=== PATIENT | male | born 1935 | race Caucasian/White ===

== ENCOUNTER 2018-11-06 13:02 | Inpatient (IN) | payer BC, MEDICARE ==
[2018-11-06] MEDS ORDERED: SODIUM CHLORIDE 0.9% 500 ML 500 ML IV STA (13:18)
--- NOTE | 2018-11-06 13:21 | ED ---
General Adult HPI - General Chief complaint: Chest Pain Stated complaint: Chest Pain Time Seen by Provider: 11/06/18 13:05 Source: patient, RN notes reviewed Mode of arrival: wheelchair Limitations: no limitations - History of Present Illness Initial comments: This is an 83-year-old male who presents emergency department with past medical history significant for high blood pressure. Patient comes in today complaining that he had some sharp chest pain this morning and he had occur multiple times. Patient states it lasts for about 1 second and goes away and then it doesn't come back for a while and then it has occurred multiple times since then per patient denies any radiation of the pain. Patient denies any shortness of breath or difficulty breathing. Patient denies any nausea patient patient denies any diaphoretic episodes. Patient states currently he is not having any pain whatsoever. He states recently had a little upper respiratory infection with a little bit of a cough but has no sputum production. Patient denies any fever chills. Patient denies any lightheadedness or dizziness per patient denies any headache patient denies numbness weakness. Patient denies any abdominal pain - Related Data Home Medications Medication Instructions Recorded Confirmed Hydrochlorothiazide [Hydrodiuril] 25 mg PO DAILY 02/23/14 11/06/18 Aspirin EC [Ecotrin Low Dose] 81 mg PO DAILY 11/06/18 11/06/18 Allergies Allergy/AdvReac Type Severity Reaction Status Date / Time No Known Allergies Allergy Verified 11/06/18 13:39 Review of Systems ROS Statement: Those systems with pertinent positive or pertinent negative responses have been documented in the HPI. ROS Other: All systems not noted in ROS Statement are negative. Past Medical History Past Medical History: Hypertension History of Any Multi-Drug Resistant Organisms: None Reported Past Surgical History: Orthopedic Surgery Past Psychological History: No Psychological Hx Reported Smoking Status: Former smoker Past Alcohol Use History: Occasional Past Drug Use History: Unable to Obtain General Exam - General Exam Comments Initial Comments: GENERAL: Patient is well-developed and well-nourished. Patient is nontoxic and well- hydrated and is in no acute distress. ENT: Neck is soft and supple. No significant lymphadenopathy is noted. Oropharynx is clear. Moist mucous membranes. Neck has full range of motion without eliciting any pain. EYES: The sclera were anicteric and conjunctiva were pink and moist. Extraocular movements were intact and pupils were equal round and reactive to light. Eyelids were unremarkable. PULMONARY: Crackles left base CARDIOVASCULAR: There is a regular rate and rhythm without any murmurs gallops or rubs. ABDOMEN: Soft and nontender with normal bowel sounds. SKIN: Skin is clear with no lesions or rashes and otherwise unremarkable. NEUROLOGIC: Patient is alert and oriented x3. Cranial nerves II through XII are grossly intact. Motor and sensory are also intact. Normal speech, volume and content. Symmetrical smile. MUSCULOSKELETAL: Normal extremities with adequate strength and full range of motion. No lower extremity swelling or edema. No calf tenderness. LYMPHATICS: No significant lymphadenopathy is noted PSYCHIATRIC: Normal psychiatric evaluation. Limitations: no limitations Course Vital Signs 11/06/18 11/06/18 13:05 13:25 Temperature 98.6 F Pulse Rate 98 92 Respiratory 16 20 Rate Blood Pressure 147/77 119/87 O2 Sat by Pulse 95 95 Oximetry Medical Decision Making - Medical Decision Making EKG shows sinus rhythm with frequent PVCs at 97 bpm ND interval is on a 42 QRS is 110 QT interval 360 QTC is 457. Patient's EKG shows no ST segment elevation or depression. Patient was not having symptoms when he had the PVCs. Patient's chest x-ray shows infiltrate in the left base. I gave the patient 2 g of Rocephin. Spoke with Dr. Galvin he agreed to admit the patient admitted the patient and wrote admitting orders. I continued antibiotics on the floor - Lab Data Result diagrams: 11/06/18 13:25 11/06/18 13:25 Lab Results 11/06/18 11/06/18 11/06/18 Range/Units 13:25 13:25 13:25 WBC 21.2 H (3.8-10.6) k/uL RBC 5.00 (4.30-5.90) m/uL Hgb 14.6 (13.0-17.5) gm/dL Hct 44.5 (39.0-53.0) % MCV 89.1 (80.0-100.0) fL MCH 29.3 (25.0-35.0) pg MCHC 32.9 (31.0-37.0) g/dL RDW 13.5 (11.5-15.5) % Plt Count 415 (150-450) k/uL Neutrophils % 89 % Lymphocytes % 6 % Monocytes % 4 % Eosinophils % 1 % Basophils % 0 % Neutrophils # 18.8 H (1.3-7.7) k/uL Lymphocytes # 1.3 (1.0-4.8) k/uL Monocytes # 0.8 (0-1.0) k/uL Eosinophils # 0.1 (0-0.7) k/uL Basophils # 0.1 (0-0.2) k/uL PT 10.7 (9.0-12.0) sec INR 1.0 (<1.2) APTT 23.9 (22.0-30.0) sec Sodium 136 L (137-145) mmol/L Potassium 4.3 (3.5-5.1) mmol/L Chloride 99 (98-107) mmol/L Carbon Dioxide 30 (22-30) mmol/L Anion Gap 7 mmol/L BUN 18 (9-20) mg/dL Creatinine 0.74 (0.66-1.25) mg/dL Est GFR (CKD-EPI)AfAm >90 (>60 ml/min/1.73 sqM) Est GFR (CKD-EPI)NonAf 85 (>60 ml/min/1.73 sqM) Glucose 108 H (74-99) mg/dL Calcium 9.4 (8.4-10.2) mg/dL Magnesium 1.7 (1.6-2.3) mg/dL Total Bilirubin 1.3 (0.2-1.3) mg/dL AST 21 (17-59) U/L ALT 24 (21-72) U/L Alkaline Phosphatase 60 (38-126) U/L Troponin I (0.000-0.034) ng/mL Total Protein 6.8 (6.3-8.2) g/dL Albumin 3.9 (3.5-5.0) g/dL 11/06/18 Range/Units 13:25 WBC (3.8-10.6) k/uL RBC (4.30-5.90) m/uL Hgb (13.0-17.5) gm/dL Hct (39.0-53.0) % MCV (80.0-100.0) fL MCH (25.0-35.0) pg MCHC (31.0-37.0) g/dL RDW (11.5-15.5) % Plt Count (150-450) k/uL Neutrophils % % Lymphocytes % % Monocytes % % Eosinophils % % Basophils % % Neutrophils # (1.3-7.7) k/uL Lymphocytes # (1.0-4.8) k/uL Monocytes # (0-1.0) k/uL Eosinophils # (0-0.7) k/uL Basophils # (0-0.2) k/uL PT (9.0-12.0) sec INR (<1.2) APTT (22.0-30.0) sec Sodium (137-145) mmol/L Potassium (3.5-5.1) mmol/L Chloride (98-107) mmol/L Carbon Dioxide (22-30) mmol/L Anion Gap mmol/L BUN (9-20) mg/dL Creatinine (0.66-1.25) mg/dL Est GFR (CKD-EPI)AfAm (>60 ml/min/1.73 sqM) Est GFR (CKD-EPI)NonAf (>60 ml/min/1.73 sqM) Glucose (74-99) mg/dL Calcium (8.4-10.2) mg/dL Magnesium (1.6-2.3) mg/dL Total Bilirubin (0.2-1.3) mg/dL AST (17-59) U/L ALT (21-72) U/L Alkaline Phosphatase (38-126) U/L Troponin I <0.012 (0.000-0.034) ng/mL Total Protein (6.3-8.2) g/dL Albumin (3.5-5.0) g/dL Disposition Clinical Impression: Pneumonia Disposition: ADMITTED IP TO THIS HOSP Referrals: Robinson Altman MD [Primary Care Provider] - 1-2 days Time of Disposition: 14:50
--- NOTE | 2018-11-06 13:59 | XR ---
EXAMINATION TYPE: XR chest 2V DATE OF EXAM: 11/06/2018 COMPARISON: None HISTORY: Shortness of breath TECHNIQUE: Frontal and lateral views of the chest are obtained. FINDINGS: Scattered senescent parenchymal changes noted. There is left basilar atelectasis or infiltrate noted. Heart size is stable. Mediastinal structures are stable and grossly unremarkable. No evidence for hilar prominence. Degenerative changes dorsal spine. IMPRESSION: 1. There is left basilar atelectasis or infiltrate noted.
[2018-11-06 14:04] LABS: Basophils # (A) 0.1 k/uL (0-0.2); Basophils % (A) 0 %; Eosinophils # (A) 0.1 k/uL (0-0.7); Eosinophils % (A) 1 %; HCT 44.5 % (39.0-53.0); HGB 14.6 gm/dL (13.0-17.5); Lymphocytes # (A) 1.3 k/uL (1.0-4.8); Lymphocytes % (A) 6 %; MCH 29.3 pg (25.0-35.0); MCHC 32.9 g/dL (31.0-37.0); MCV 89.1 fL (80.0-100.0); Mean Platelet Volume 7.1; Monocytes # (A) 0.8 k/uL (0-1.0); Monocytes % (A) 4 %; Neutrophils # (A) 18.8 k/uL (1.3-7.7); Neutrophils % (A) 89 %; Platelet Count 415 k/uL (150-450); RDW 13.5 % (11.5-15.5); WBC 21.2 k/uL (3.8-10.6)
[2018-11-06 14:17] LABS: Partial Thromboplastin Time 23.9 sec (22.0-30.0); Prothrombin Time 10.7 sec (9.0-12.0)
[2018-11-06 14:24] LABS: ALT 24 U/L (21-72); AST 21 U/L (17-59); Albumin 3.9 g/dL (3.5-5.0); Alkaline Phosphatase 60 U/L (38-126); Anion Gap 7 mmol/L; Blood Urea Nitrogen 18 mg/dL (9-20); Calcium 9.4 mg/dL (8.4-10.2); Carbon Dioxide 30 mmol/L (22-30); Chloride 99 mmol/L (98-107); Glucose 108 mg/dL (74-99); Magnesium 1.7 mg/dL (1.6-2.3); Sodium 136 mmol/L (137-145); Total Bilirubin 1.3 mg/dL (0.2-1.3); Total Protein 6.8 g/dL (6.3-8.2)
[2018-11-06 14:28] LABS: Potassium 4.3 mmol/L (3.5-5.1)
[2018-11-06] MEDS ORDERED: AZITHROMYCIN 500 MG in SODIUM CHLORIDE 0.9% 250 ML IVPB STA (14:51)
[2018-11-06] MEDS ORDERED: PNEUMONIA PROTOCOL UTILIZED 1 EACH MISC PO PRN (14:51)
[2018-11-06] MEDS ORDERED: ACETAMINOPHEN TAB 325 MG TAB PO PRN (14:59)
[2018-11-06] MEDS ORDERED: IPRATROPIUM-ALBUTEROL 3 ML NEB INHALATION PRN (14:59)
--- NOTE | 2018-11-06 15:38 | P.HPIM ---
History of Present Illness H&P Date: 11/06/18 This is a 83-year-old male patient of Dr. Altman. Patient presented with complaints of sharp chest pain that has occurs with coughing. Per patient's family member at bedside patient has been increasingly weak and tired over the past few weeks. Patient has reportedly had a cough for multiple weeks. Patient does have a past medical history of hypertension and ex-smoker. Chest x-ray completed showing there is left basal atelectasis or infiltrate noted. EKG completed showing sinus rhythm with frequent premature ventricular complexes, left anterior fascicle block. Initial troponin negative. WBC 21.2. Patient started on azithromycin and Rocephin. DuoNeb breathing treatments. Repeat to y ou a chest x-ray ordered for a.m. sputum and blood culture ordered. At this time patient denies chest pain and SOB. Patient denies nausea vomiting or diarrhea. Patient denies any urinary burning or frequency Review of Systems please refer to HPI otherwise unremarkable Past Medical History Past Medical History: Hypertension History of Any Multi-Drug Resistant Organisms: None Reported Past Surgical History: Orthopedic Surgery Past Psychological History: No Psychological Hx Reported Smoking Status: Former smoker Past Alcohol Use History: Occasional Past Drug Use History: Unable to Obtain Medications and Allergies Home Medications Medication Instructions Recorded Confirmed Type Hydrochlorothiazide [Hydrodiuril] 25 mg PO DAILY 02/23/14 11/06/18 History Aspirin EC [Ecotrin Low Dose] 81 mg PO DAILY 11/06/18 11/06/18 History Allergies Allergy/AdvReac Type Severity Reaction Status Date / Time No Known Allergies Allergy Verified 11/06/18 13:39 Physical Exam Vitals: Vital Signs Temp Pulse Resp BP Pulse Ox 11/06/18 13:25 92 20 119/87 95 11/06/18 13:05 98.6 F 98 16 147/77 95 Intake and Output 11/06/18 11/06/18 11/06/18 06:59 14:59 22:59 Other: Weight 97.976 kg Head normocephalic Neck supple Lungs diminished bilaterally Heart regular rate and rhythm S1-S2, no rub or gallop Abdomen is soft nontender nondistended positive bowel sounds no hepatosplenomegaly Extremities no edema Neuro alert and orientated to 3 Results CBC & Chem 7: 11/06/18 13:25 11/06/18 13:25 Labs: Abnormal Lab Results - Last 24 Hours (Table) 11/06/18 11/06/18 Range/Units 13:25 13:25 WBC 21.2 H (3.8-10.6) k/uL Neutrophils # 18.8 H (1.3-7.7) k/uL Sodium 136 L (137-145) mmol/L Glucose 108 H (74-99) mg/dL Assessment and Plan Assessment: 1. Chest pain . EKG completed showing sinus rhythm with frequent premature ventricular complexes. Left anterior fascicular block. Troponin negative 1. Repeat 2 view chest x-ray ordered. Cardiology services consulted. Serial troponins ordered 2. pneumonia. Chest x-ray completed showing left basal atelectasis or infiltrate noted. Sputum culture ordered. Patient currently on azithromycin and Rocephin. Pulmonary service is consulted. 3. History of essential hypertension. Home meds resumed DVT prophylaxis Lovenox. GI prophylaxis Protonix Time with Patient: Greater than 30 (Greater than 60% of the total time spent in counseling and coordination of care. I performed an examination of the patient and discussed their management with the Nurse Practitioner. I have reviewed the Nurse Practitioner's notes and agree with the documented findings and plan of care)
[2018-11-06] MEDS: IPRATROPIUM-ALBUTEROL 3 ML NEB INHALATION SCH ×2 (16:56→19:35)
[2018-11-06 21:10] LABS: Creatine Kinase MB 0.6 ng/mL (0.0-2.4)
[2018-11-07] MEDS: HYDROCHLOROTHIAZIDE 25 MG TAB PO SCH (08:04)
[2018-11-07] MEDS: ASPIRIN 81 MG PO SCH (08:04)
[2018-11-07] MEDS: PANTOPRAZOLE 40 MG TABLET PO SCH (08:04)
[2018-11-07] MEDS: ENOXAPARIN 40 MG/0.4 ML SYRINGE SQ SCH (08:04)
[2018-11-07 08:22] LABS: Basophils # (A) 0.1 k/uL (0-0.2); Basophils % (A) 0 %; Eosinophils # (A) 0.1 k/uL (0-0.7); Eosinophils % (A) 0 %; HCT 44.6 % (39.0-53.0); HGB 14.4 gm/dL (13.0-17.5); Lymphocytes # (A) 1.3 k/uL (1.0-4.8); Lymphocytes % (A) 8 %; MCH 29.8 pg (25.0-35.0); MCHC 32.4 g/dL (31.0-37.0); MCV 91.9 fL (80.0-100.0); Mean Platelet Volume 6.8; Monocytes # (A) 0.8 k/uL (0-1.0); Monocytes % (A) 5 %; Neutrophils % (A) 86 %; Platelet Count 406 k/uL (150-450); RBC 4.86 m/uL (4.30-5.90); WBC 16.3 k/uL (3.8-10.6)
[2018-11-07 08:32] LABS: ALT 34 U/L (21-72); AST 17 U/L (17-59); Alkaline Phosphatase 67 U/L (38-126); Anion Gap 8 mmol/L; Blood Urea Nitrogen 15 mg/dL (9-20); Calcium 9.6 mg/dL (8.4-10.2); Carbon Dioxide 31 mmol/L (22-30); Chloride 98 mmol/L (98-107); Glucose 110 mg/dL (74-99); Potassium 4.8 mmol/L (3.5-5.1); Sodium 137 mmol/L (137-145); Total Bilirubin 2.5 mg/dL (0.2-1.3); Total Protein 6.9 g/dL (6.3-8.2)
--- NOTE | 2018-11-07 08:50 | XR ---
EXAMINATION TYPE: XR chest 2V DATE OF EXAM: 11/07/2018 COMPARISON: 11/06/2018 TECHNIQUE: PA and lateral views submitted. HISTORY: Follow-up pneumonia FINDINGS: Bilateral consolidation and small effusion. Biapical pleural. Chronic clavicular deformity. No pneumo thorax. Biapical pleural thickening. Heart size stable. Degenerative changes of the spine noted. Mild compression deformities of indeterminate age. Arthropathy of the shoulders. IMPRESSION: 1. Bilateral infiltrate and pleural effusion correlate for pneumonia otherwise consider CHF. Findings are stable.
[2018-11-07] MEDS: IPRATROPIUM-ALBUTEROL 3 ML NEB INHALATION SCH ×4 (09:02→20:29)
[2018-11-07 09:06] LABS: Creatine Kinase MB 0.7 ng/mL (0.0-2.4)
--- NOTE | 2018-11-07 09:25 | P.CRDCN ---
History of Present Illness History of present illness: This is a pleasant 83-year-old male past medical history significant for hypertension and former nicotine dependence. He denies history of coronary artery disease and does not follow with a melter assistant for any reason. We have been asked to see him in consultation secondary to chest discomfort. He presented to the hospital yesterday with symptoms of sharp pleuritic chest dis comfort in the midsternal region that are worse when he coughs or takes in a deep breath. He states he has been coughing for the last few days and has had associated shortness of breath. The pain initially started at the base of his left ribs and his radiated to the midsternal region. He denies associated dizziness, nausea, vomiting, diaphoresis or palpitations. He is currently being treated with IV antibiotics for pneumonia. EKG reveals sinus mechanism with frequent PVCs and left anterior fascicular block heart rate is 97. Chest x-ray obtained on admission reveals an infiltrate in the left lobe. Repeat this morning reveals bilateral infiltrate and pleural effusions. Laboratory data reviewed, WBC on admission 21.2, repeat this morning 16.3, hemoglobin 14.4, platelets were 06, sodium 137, potassium 4.8, creatinine 0.79, magnesium 1.7, cardiac enzymes negative 1. Current cardiac medications include hydrochlorothiazide 25 mg daily and aspirin 81 mg daily. At the time of my exam: CONSTITUTIONAL: Denies fever. Denies chills. EYES: Denies blurred vision. Denies vision changes. Denies eye pain. EARS, NOSE, MOUTH & THROAT: Denies headache. Denies sore throat. Denies ear pain. CARDIOVASCULAR: Complains of pleuritic chest pain with cough and deep inspiration. Complains of shortness of breath. Denies orthopnea. Denies PND. Denies palpitations. RESPIRATORY: Complains of cough. GASTROINTESTINAL: Denies abdominal pain. Denies diarrhea. Denies constipation. Denies nausea. Denies vomiting. MUSCULOSKELETAL: Denies myalgias. INTEGUMENTARY: Denies pruitis. Denies rash. NEUROLOGIC: Denies numbness. Denies tingling. Denies weakness. PSYCHIATRIC: Denies anxiety. Denies depression. ENDOCRINE: Denies fatigue. Denies weight change. Denies polydipsia. Denies polyurina. GENITOURINARY: Denies burning, hematuria or urgency with micturation. HEMATOLOGIC: Denies history of anemia. Denies bleeding. Blood pressure 130/73 heart rate 100 afebrile maintaining oxygen saturation on nasal cannula GENERAL: This is a 83-year-old male in no apparent distress at the time of my examination. HEENT: Head is atraumatic, normocephalic. Pupils are equal, round. Sclerae anicteric. Conjunctivae are clear. Mucous membranes of the mouth are moist. Neck is supple. There is no jugular venous distention. No carotid bruit is heard. LUNGS: Scattered rhonchi noted, no wheezes or rales. No chest wall tenderness is noted on palpation or with deep breathing. HEART: Regular rate and rhythm without murmurs, rubs or gallops. S1 and S2 heard. ABDOMEN: Soft, nontender. Bowel sounds are heard. No organomegaly noted. EXTREMITIES: No evidence of peripheral edema and no calf tenderness noted. VASCULAR: Radial and dorsalis pedis pulses palpated, no evidence of clubbing. NEUROLOGIC: Patient is awake, alert and oriented x3. ASSESSMENT Pneumonia Pleuritic chest pain Hypertension PLAN Patient is very atypical for angina, is pleuritic in nature worse with deep inspiration or cough. No EKG evidence of ischemia. Obtain second troponin to rule out an acute events. Check proBNP. Obtain 2D echocardiogram and doppler study to assess cardiac structure and function. Ongoing medical management of pneumonia. Thank you kindly for this consultation. Nurse Practitioner note has been reviewed, I agree with a documented findings and plan of care. Patient was seen and examined. Past Medical History Past Medical History: Hypertension History of Any Multi-Drug Resistant Organisms: None Reported Past Surgical History: Orthopedic Surgery Past Psychological History: No Psychological Hx Reported Smoking Status: Former smoker Past Alcohol Use History: Occasional Past Drug Use History: Unable to Obtain Medications and Allergies Home Medications Medication Instructions Recorded Confirmed Type Hydrochlorothiazide [Hydrodiuril] 25 mg PO DAILY 02/23/14 11/06/18 History Aspirin EC [Ecotrin Low Dose] 81 mg PO DAILY 11/06/18 11/06/18 History Allergies Allergy/AdvReac Type Severity Reaction Status Date / Time No Known Allergies Allergy Verified 11/06/18 13:39 Physical Exam Vitals: Vital Signs Temp Pulse Pulse Resp BP BP Pulse Ox 11/07/18 09:02 96 11/07/18 05:00 98.8 F 92 16 130/73 90 L 11/06/18 21:02 20 11/06/18 20:33 98.5 F 90 20 138/61 95 11/06/18 19:42 99 11/06/18 19:33 99 11/06/18 17:56 98.1 F 99 20 151/95 90 L 11/06/18 17:06 100 11/06/18 17:00 99.0 F 84 20 132/67 95 11/06/18 16:58 96 11/06/18 16:00 87 20 120/70 95 11/06/18 15:00 88 16 142/80 94 L 11/06/18 14:00 90 18 139/85 95 11/06/18 13:25 92 20 119/87 95 11/06/18 13:05 98.6 F 98 16 147/77 95 Intake and Output 11/06/18 11/07/18 11/07/18 22:59 06:59 14:59 Intake Total 490 480 Balance 490 480 Intake: Intake, IV Titration 250 Amount Azithromycin 500 mg In 250 Sodium Chloride 0.9% 250 ml @ 250 mls/hr IVPB ONCE STA Rx#:[id number] Oral 240 480 Other: Voiding Method Urinal # Voids 1 3 Results 11/07/18 07:32 11/07/18 07:32 Cardiac Enzymes 11/06/18 11/06/18 11/06/18 Range/Units 13:25 13:25 13:25 AST 21 (17-59) U/L CK-MB (CK-2) 1.0 (0.0-2.4) ng/mL Troponin I <0.012 (0.000-0.034) ng/mL 11/06/18 11/07/18 Range/Units 20:15 07:32 AST 17 (17-59) U/L CK-MB (CK-2) 0.6 (0.0-2.4) ng/mL Troponin I (0.000-0.034) ng/mL Coagulation 11/06/18 Range/Units 13:25 PT 10.7 (9.0-12.0) sec APTT 23.9 (22.0-30.0) sec CBC 11/06/18 11/07/18 Range/Units 13:25 07:32 WBC 21.2 H 16.3 H (3.8-10.6) k/uL RBC 5.00 4.86 (4.30-5.90) m/uL Hgb 14.6 14.4 (13.0-17.5) gm/dL Hct 44.5 44.6 (39.0-53.0) % Plt Count 415 406 (150-450) k/uL Comprehensive Metabolic Panel 11/06/18 11/07/18 Range/Units 13:25 07:32 Sodium 136 L 137 (137-145) mmol/L Potassium 4.3 4.8 (3.5-5.1) mmol/L Chloride 99 98 (98-107) mmol/L Carbon Dioxide 30 31 H (22-30) mmol/L BUN 18 15 (9-20) mg/dL Creatinine 0.74 0.79 (0.66-1.25) mg/dL Glucose 108 H 110 H (74-99) mg/dL Calcium 9.4 9.6 (8.4-10.2) mg/dL AST 21 17 (17-59) U/L ALT 24 34 (21-72) U/L Alkaline Phosphatase 60 67 (38-126) U/L Total Protein 6.8 6.9 (6.3-8.2) g/dL Albumin 3.9 4.0 (3.5-5.0) g/dL Current Medications Generic Name Dose Route Start Last Admin Trade Name Freq PRN Reason Stop Dose Admin Acetaminophen 650 mg 11/06/18 14:59 11/06/18 20:12 Tylenol Tab PO 650 mg Q6HR PRN Administration Fever and/ or Pain Albuterol/Ipratropium 3 ml 11/06/18 16:00 11/07/18 09:02 Duoneb 0.5 Mg-3 Mg/3 Ml Soln INHALATION 3 ml RT-QID SOWMYA Administration Albuterol/Ipratropium 3 ml 11/06/18 14:59 Duoneb 0.5 Mg-3 Mg/3 Ml Soln INHALATION RT-Q2H PRN Shortness Of Breath Or Wheezing Aspirin 81 mg 11/07/18 09:00 11/07/18 08:04 Aspirin PO 81 mg DAILY SOWMYA Administration Azithromycin 500 mg 11/07/18 16:00 Zithromax PO Q24H [facility] Enoxaparin Sodium 40 mg 11/07/18 09:00 11/07/18 08:04 Lovenox SQ 40 mg DAILY SOWMYA Administration Hydrochlorothiazide 25 mg 11/07/18 09:00 11/07/18 08:04 Hydrodiuril PO 25 mg DAILY SOWMYA Administration Ceftriaxone Sodium 1 gm/ 50 mls @ 100 mls/hr 11/07/18 16:00 Sodium Chloride IVPB 11/10/18 16:01 Q24H SOWMYA Miscellaneous Information 1 each 11/06/18 14:51 Pneumonia Protocol Utilized PO ONCE PRN Per Protocol Pantoprazole Sodium 40 mg 11/07/18 07:30 11/07/18 08:04 Protonix PO 40 mg [id number] SOWMYA Administration Intake and Output 11/06/18 11/07/18 11/07/18 22:59 06:59 14:59 Intake Total 490 480 Balance 490 480 Intake: Intake, IV Titration 250 Amount Azithromycin 500 mg In 250 Sodium Chloride 0.9% 250 ml @ 250 mls/hr IVPB ONCE STA Rx#:[id number] Oral 240 480 Other: Voiding Method Urinal # Voids 1 3 11/07/18 07:32 11/07/18 07:32
--- NOTE | 2018-11-07 09:53 | P.PN ---
Subjective Progress Note Date: 11/07/18 This is a 83-year-old male patient of Dr. Altman. Patient presented with complaints of sharp chest pain that has occurs with coughing. Per patient's family member at bedside patient has been increasingly weak and tired over the past few weeks. Patient has reportedly had a cough for multiple weeks. Patient does have a past medical history of hypertension and ex-smoker. Chest x-ray completed showing there is left basal atelectasis or infiltrate noted. EKG completed showing sinus rhythm with frequent premature ventricular complexes, left anterior fascicle block. Initial troponin negative. WBC 21.2. Patient started on azithromycin and Rocephin. DuoNeb breathing treatments. Repeat to you a chest x-ray ordered for a.m. sputum and blood culture ordered. At this time patient denies chest pain and SOB. Patient denies nausea vomiting or diarrhea. Patient denies any urinary burning or frequency On 11/07/2018 patient is alert and oriented 3 resting in bed. Discussed with nursing staff that cardiac monitoring was ordered for this patient yesterday and patient is not currently on that. Nursing verbalized understanding we'll place patient on cardiac monitoring. Patient is still complaining of occasional chest pain while coughing. Nonproductive cough. At this time patient denies any nausea vomiting or diarrhea. Patient denies any urinary burning or frequency. Cardiology and pulmonary services have been consulted. Objective - Vital Signs Vital signs: Vital Signs Temp 98.8 F 11/07/18 05:00 Pulse 100 11/07/18 09:12 Resp 16 11/07/18 05:00 BP 130/73 11/07/18 05:00 Pulse Ox 90 L 11/07/18 05:00 Intake & Output 11/06/18 11/07/18 11/07/18 18:59 06:59 18:59 Intake Total 970 Balance 970 Weight 97.976 kg Intake: Intake, IV Titration 250 Amount Azithromycin 500 mg In 250 Sodium Chloride 0.9% 250 ml @ 250 mls/hr IVPB ONCE STA Rx#:[id number] Oral 720 Other: Voiding Method Urinal # Voids 3 - Exam Head normocephalic Neck supple Lungs diminished bilaterally Heart regular rate and rhythm S1-S2, no rub or gallop Abdomen is soft nontender nondistended positive bowel sounds no hepatosplenomegaly Extremities no edema Neuro alert and orientated to 3 - Labs CBC & Chem 7: 11/07/18 07:32 11/07/18 07:32 Labs: Abnormal Lab Results - Last 24 Hours (Table) 11/06/18 11/06/18 11/06/18 Range/Units 13:25 13:25 13:25 WBC 21.2 H (3.8-10.6) k/uL Neutrophils # 18.8 H (1.3-7.7) k/uL Sodium 136 L (137-145) mmol/L Carbon Dioxide (22-30) mmol/L Glucose 108 H (74-99) mg/dL Total Bilirubin (0.2-1.3) mg/dL Total Creatine Kinase 35 L (55-170) U/L 11/06/18 11/07/18 11/07/18 Range/Units 20:15 07:32 07:32 WBC 16.3 H (3.8-10.6) k/uL Neutrophils # 14.0 H (1.3-7.7) k/uL Sodium (137-145) mmol/L Carbon Dioxide (22-30) mmol/L Glucose (74-99) mg/dL Total Bilirubin (0.2-1.3) mg/dL Total Creatine Kinase 28 L 34 L (55-170) U/L 11/07/18 Range/Units 07:32 WBC (3.8-10.6) k/uL Neutrophils # (1.3-7.7) k/uL Sodium (137-145) mmol/L Carbon Dioxide 31 H (22-30) mmol/L Glucose 110 H (74-99) mg/dL Total Bilirubin 2.5 H (0.2-1.3) mg/dL Total Creatine Kinase (55-170) U/L Assessment and Plan Assessment: 1. Chest pain . EKG completed showing sinus rhythm with frequent premature ventricular complexes. Left anterior fascicular block. Troponin negative 1. Cardiac monitoring ordered for patient. Nursing verbalized understanding. Per cardiology chest pain very typical for angina likely pleuritic in nature. 2-D e cho and BNP has been ordered 2. pneumonia. Chest x-ray completed showing left basal atelectasis or infiltrate noted. Sputum culture ordered. Patient currently on azithromycin and Rocephin. Pulmonary service is consulted. White Blood cell trending down to 16.3. Repeat chest x-ray showing bilateral infiltrate and pleural effusion correlate for pneumonia otherwise consider CHF findings are stable 3. History of essential hypertension. Home meds resumed DVT prophylaxis Lovenox. GI prophylaxis Protonix I performed an examination of the patient and discussed their management with the Nurse Practitioner. I have reviewed the Nurse Practitioner's notes and agree with the documented findings and plan of care
--- NOTE | 2018-11-07 12:13 | P.CNPUL ---
History of Present Illness Consult date: 11/07/18 Requesting physician: Charlie Galvin Reason for consult: dyspnea, chest pain Chief complaint: Sharp midsternal/left sided chest pain History of present illness: This is a very pleasant 83-year-old gentleman who follows with Dr. Altman as his primary care physician. He has a history of hypertension. He is a former smoker. On no inhalers or oxygen in the outpatient setting. He presented here to the emergency room yesterday with complaints of midsternal/left sharp stabbing intermittent chest pain. Worsens with coughing and deep breathing. Pale yellow productive sputum. No hemoptysis. Initial white count 21.2. Troponins negative. ProBNP 313. Chest x-ray shows bilateral infiltrates and pleural effusion. He's been initiated on ceftriaxone and azithromycin along with bronchodilators. Echocardiogram is pending. EKG revealed sinus rhythm and occasional PVCs. He is seen today in consultation on the regular medical floor. He is awake and alert in no acute distress. Still with occasional sharp right- sided chest discomfort. Maintaining O2 saturations in the 90s on 2 L/m per jim al cannula. He is afebrile. Hemodynamically stable. White count 16.3. Hemoglobin 14.4. Creatinine 0.79. Review of Systems REVIEW OF SYSTEMS: CONSTITUTIONAL: Denies any recent significant weight loss or weight gain. EYES: Denies change in vision. EARS, NOSE, MOUTH, THROAT: Denies headaches, denies sore throat. CARDIOVASCULAR: Sharp right-sided chest pain but no palpitations or syncopal episodes. RESPIRATORY: Positive for shortness of breath, cough, congestion no hemoptysis. GASTROINTESTINAL: Denies change in appetite, denies abdominal pain GENITOURINARY: Denies hematuria, denies infections. MUSKULOSKELETAL: Denies pain, denies swelling. INTEGUMENTARY: Denies rash, denies eczema. NEUROLOGICAL: Denies recent memory loss, no recent seizure activity. PSYCHIATRIC: Denies anxiety, denies depression. HEMATOLOGIC/LYMPHATIC: Denies anemia, denies enlarged lymph nodes. Past Medical History Past Medical History: Hypertension History of Any Multi-Drug Resistant Organisms: None Reported Past Surgical History: Orthopedic Surgery Past Psychological History: No Psychological Hx Reported Smoking Status: Former smoker Past Alcohol Use History: Occasional Past Drug Use History: Unable to Obtain Medications and Allergies Home Medications Medication Instructions Recorded Confirmed Type Hydrochlorothiazide [Hydrodiuril] 25 mg PO DAILY 02/23/14 11/06/18 History Aspirin EC [Ecotrin Low Dose] 81 mg PO DAILY 11/06/18 11/06/18 History Allergies Allergy/AdvReac Type Severity Reaction Status Date / Time No Known Allergies Allergy Verified 11/06/18 13:39 Physical Exam Vitals: Vital Signs Temp Pulse Pulse Resp BP BP Pulse Ox 11/07/18 09:12 100 11/07/18 09:02 96 11/07/18 05:00 98.8 F 92 16 130/73 90 L 11/06/18 21:02 20 11/06/18 20:33 98.5 F 90 20 138/61 95 11/06/18 19:42 99 11/06/18 19:33 99 11/06/18 17:56 98.1 F 99 20 151/95 90 L 11/06/18 17:06 100 11/06/18 17:00 99.0 F 84 20 132/67 95 11/06/18 16:58 96 11/06/18 16:00 87 20 120/70 95 11/06/18 15:00 88 16 142/80 94 L 11/06/18 14:00 90 18 139/85 95 11/06/18 13:25 92 20 119/87 95 11/06/18 13:05 98.6 F 98 16 147/77 95 Intake and Output 11/06/18 11/07/18 11/07/18 22:59 06:59 14:59 Intake Total 490 480 Balance 490 480 Intake: Intake, IV Titration 250 Amount Azithromycin 500 mg In 250 Sodium Chloride 0.9% 250 ml @ 250 mls/hr IVPB ONCE STA Rx#:[id number] Oral 240 480 Other: Voiding Method Urinal # Voids 1 3 GENERAL EXAM: Alert, active, comfortable in no apparent distress. On 2 L nasal cannula. HEAD: Normocephalic. EYES: Normal reaction of pupils, equal size. NOSE: Clear with pink turbinates. THROAT: No erythema or exudates. NECK: No masses, no JVD. CHEST: No chest wall deformity. LUNGS: Equal air entry with few scattered rhonchi. CVS: S1 and S2 normal with no audible murmur, regular rhythm. ABDOMEN: No hepatosplenomegaly, normal bowel sounds, no guarding or rigidity. SPINE: Kyphoscoliosis SKIN: No rashes CENTRAL NERVOUS SYSTEM: No focal deficits, tone is normal in all 4 extremities. EXTREMITIES: There is no peripheral edema. No clubbing, no cyanosis. Peripheral pulses are intact. Results - Laboratory Findings CBC and BMP: 11/07/18 07:32 11/07/18 07:32 PT/INR, D-dimer PT 10.7 sec (9.0-12.0) 11/06/18 13:25 INR 1.0 (<1.2) 11/06/18 13:25 Abnormal lab findings: Abnormal Labs 11/06/18 11/06/18 11/06/18 13:25 13:25 13:25 WBC 21.2 H Neutrophils # 18.8 H Sodium 136 L Carbon Dioxide Glucose 108 H Total Bilirubin Total Creatine Kinase 35 L 11/06/18 11/07/18 11/07/18 20:15 07:32 07:32 WBC 16.3 H Neutrophils # 14.0 H Sodium Carbon Dioxide Glucose Total Bilirubin Total Creatine Kinase 28 L 34 L 11/07/18 07:32 WBC Neutrophils # Sodium Carbon Dioxide 31 H Glucose 110 H Total Bilirubin 2.5 H Total Creatine Kinase - Diagnostic Findings Chest x-ray: image reviewed Assessment and Plan Assessment: Impression: #1 Midsternal/left-sided chest pain, pleuritic in nature secondary to bilateral lower lobe infiltrates/atelectasis and small bilateral pleural effusions. #2 Leukocytosis secondary to suspected early bibasilar pneumonia. #3 History of previous tobacco dependence. #4 Hypertension. Plan: The patient was seen and evaluated by Dr. Aquino. Chest pain appears pleuritic in nature. Possible early pneumonia. Maintained on ceftriaxone and azit hromycin. Continue bronchodilators. Lovenox for DVT prophylaxis. Echocardiogram pending. We will continue to follow and make further recommendations based on his clinical status. I, the cosigning physician, performed a history & physical examination of the patient. Lungs sounds with few scattered rhonchi, crackles in the posterior bases. Maintaining good O2 saturations in the 90s on 2 L/m per nasal cannula. I discussed the assessment and plan of care with my nurse practitioner, Ora Cardenas. I attest to the above note as dictated by her. Time with Patient: Greater than 30
[2018-11-07] MEDS ORDERED: MORPHINE SULFATE 2 MG/ML SYRINGE IVP PRN (15:11)
[2018-11-07] MEDS: methylPREDNISolone SOD SUCCI 40 MG/ML 1 ML VIAL IV SCH ×2 (15:52→23:17)
[2018-11-07] MEDS: AZITHROMYCIN 500 MG TAB PO SCH (15:52)
--- NOTE | 2018-11-07 17:22 | ECHOF ---
Referral Reason:sob, pleuritic cp MEASUREMENTS -------- HEIGHT: 180.3 cm WEIGHT: 98.0 kg BP: IVSd: 1.4 cm (0.6 - 1.1) LVIDd: 3.8 cm (3.9 - 5.3) LVPWd: 1.4 cm (0.6 - 1.1) IVSs: 1.5 cm LVIDs: 2.9 cm LVPWs: 2.2 cm LA Diam: 4.1 cm (2.7 - 3.8) RVIDd: 3.9 cm (< 3.3) Ao Diam: 2.6 cm (2.0 - 3.7) LA Diam: 4.2 cm (2.7 - 3.8) AV Cusp: 2.2 cm (1.5 - 2.6) EPSS: 1.1 cm MV E Jerrell: 0.67 m/s MV DecT: 101 ms MV A Jerrell: 0.39 m/s MV E/A Ratio: 1.73 RAP: 5.00 mmHg RVSP: 21.60 mmHg MV EF SLOPE: 63.12 mm/s (70 - 150) MV EXCURSION: 1.66 cm (> 18.000) FINDINGS -------- Sinus rhythm. This was a technically difficult study with suboptimal views. No Apicals due to skin tears. The left ventricular size is normal. There is mild concentric left ventricular hypertrophy. Overa ll left ventricular systolic function is normal with, an EF between 55 - 60 %. The right ventricle is mildly enlarged. The left atrium is mildly dilated. 5 ml of Lumason was utilized for enhancement of images. atrial septum not well visualized There is mild aortic valve sclerosis. There is no evidence of aortic regurgitation. Mild mitral annular calcification present. There is trace to mild mitral regurgitation. Trace tricuspid regurgitation present. There is no evidence of pulmonary hypertension. The pulmonic valve was not well visualized. IVC Not well visulized. There is a trivial pericardial effusion present. CONCLUSIONS -------- 1. Sinus rhythm. 2. This was a technically difficult study with suboptimal views. 3. The left ventricular size is normal. 4. There is mild concentric left ventricular hypertrophy. 5. Overall left ventricular systolic function is normal with, an EF between 55 - 60 %. 6. The right ventricle is mildly enlarged. 7. The left atrium is mildly dilated. 8. 5 ml of Lumason was utilized for enhancement of images. 9. atrial septum not well visualized 10. There is mild aortic valve sclerosis. 11. Mild mitral annular calcification present. 12. There is trace to mild mitral regurgitation. 13. Trace tricuspid regurgitation present. 14. There is no evidence of pulmonary hypertension. 15. The pulmonic valve was not well visualized. 16. IVC Not well visulized. 17. There is a trivial pericardial effusion present. JUMPBASTING FACING BASTER: Aysha Cooney RDCS
[2018-11-08] MEDS: IPRATROPIUM-ALBUTEROL 3 ML NEB INHALATION SCH ×4 (07:42→20:54)
[2018-11-08] MEDS: PANTOPRAZOLE 40 MG TABLET PO SCH (08:16)
[2018-11-08] MEDS: HYDROCHLOROTHIAZIDE 25 MG TAB PO SCH (08:16)
[2018-11-08] MEDS: ASPIRIN 81 MG PO SCH (08:16)
[2018-11-08] MEDS: methylPREDNISolone SOD SUCCI 40 MG/ML 1 ML VIAL IV SCH ×3 (08:16→23:46)
[2018-11-08] MEDS: ENOXAPARIN 40 MG/0.4 ML SYRINGE SQ SCH (08:16)
[2018-11-08 09:18] LABS: Basophils % (A) 0 %; Eosinophils % (A) 0 %; HCT 45.6 % (39.0-53.0); HGB 14.8 gm/dL (13.0-17.5); Lymphocytes % (A) 8 %; MCH 29.4 pg (25.0-35.0); MCHC 32.5 g/dL (31.0-37.0); MCV 90.5 fL (80.0-100.0); Mean Platelet Volume 7.6; Monocytes # (A) 0.3 k/uL (0-1.0); Monocytes % (A) 3 %; Neutrophils # (A) 11.1 k/uL (1.3-7.7); Neutrophils % (A) 89 %; Platelet Count 424 k/uL (150-450); RBC 5.04 m/uL (4.30-5.90); RDW 13.2 % (11.5-15.5); WBC 12.5 k/uL (3.8-10.6)
[2018-11-08 09:39] LABS: ALT 25 U/L (21-72); AST 16 U/L (17-59); Albumin 4.2 g/dL (3.5-5.0); Alkaline Phosphatase 76 U/L (38-126); Anion Gap 11 mmol/L; Blood Urea Nitrogen 19 mg/dL (9-20); Calcium 10.1 mg/dL (8.4-10.2); Carbon Dioxide 31 mmol/L (22-30); Chloride 98 mmol/L (98-107); Glucose 160 mg/dL (74-99); Sodium 140 mmol/L (137-145); Total Bilirubin 1.1 mg/dL (0.2-1.3); Total Protein 7.3 g/dL (6.3-8.2)
--- NOTE | 2018-11-08 10:40 | P.PN ---
Subjective Progress Note Date: 11/08/18 Principal diagnosis: Left sided pleuritic chest pain This is a very pleasant 83-year-old gentleman who follows with Dr. Altman as his primary care physician. He has a history of hypertension. He is a former smoker. On no inhalers or oxygen in the outpatient setting. He presented here to the emergency room yesterday with complaints of midsternal/left sharp stabbing intermittent chest pain. Worsens with coughing and deep breathing. Pale yellow productive sputum. No hemoptysis. Initial white count 21.2. Troponins negative. ProBNP 313. Chest x-ray shows bilateral infiltrates and pleural effusion. He's been initiated on ceftriaxone and azithromycin along with bronchodilators. Echocardiogram is pending. EKG revealed sinus rhythm and occasional PVCs. He is seen today in consultation on the regular medical floor. He is awake and alert in no acute distress. Still with occasional sharp right- sided chest discomfort. Maintaining O2 saturations in the 90s on 2 L/m per nasal cannula. He is afebrile. Hemodynamically stable. White count 16.3. Hemoglobin 14.4. Creatinine 0.79. The patient is seen today 11/08/2018 in follow-up on the regular medical floor. He is awake and alert in no acute distress. He is up ambulating in his room. He continues with a loose productive cough. No chills or night sweats. His left-sided chest discomfort has improved. He was placed on steroids yesterday. Blood culture reveals no growth. White count 12.5. Hemoglobin 14.8. Creatinine 0.73. He remains on bronchodilators, antibiotics, steroids. Objective - Vital Signs Vital signs: Vital Signs Temp 97.5 F L 11/08/18 04:37 Pulse 97 11/08/18 10:19 Resp 20 11/08/18 04:37 BP 156/71 11/08/18 04:37 Pulse Ox 92 L 11/08/18 10:19 Intake & Output 11/07/18 11/08/18 11/08/18 18:59 06:59 18:59 Intake Total 1490 450 Balance 1490 450 Intake: Oral 1490 450 Other: Voiding Method Urinal Urinal # Voids 3 2 - Exam GENERAL EXAM: Alert, ambulating, comfortable in no apparent distress. On 2 L nasal cannula. HEAD: Normocephalic. EYES: Normal reaction of pupils, equal size. NOSE: Clear with pink turbinates. THROAT: No erythema or exudates. NECK: No masses, no JVD. CHEST: No chest wall deformity. LUNGS: Equal air entry with few scattered rhonchi. CVS: S1 and S2 normal with no audible murmur, regular rhythm. ABDOMEN: No hepatosplenomegaly, normal bowel sounds, no guarding or rigidity. SPINE: Kyphoscoliosis SKIN: No rashes CENTRAL NERVOUS SYSTEM: No focal deficits, tone is normal in all 4 extremities. EXTREMITIES: There is no peripheral edema. No clubbing, no cyanosis. Peripheral pulses are intact. - Labs CBC & Chem 7: 11/08/18 08:10 11/08/18 08:10 Labs: Abnormal Lab Results - Last 24 Hours (Table) 11/08/18 11/08/18 Range/Units 08:10 08:10 WBC 12.5 H (3.8-10.6) k/uL Neutrophils # 11.1 H (1.3-7.7) k/uL Carbon Dioxide 31 H (22-30) mmol/L Glucose 160 H (74-99) mg/dL AST 16 L (17-59) U/L Microbiology - Last 24 Hours (Table) 11/06/18 15:30 Blood Culture - Preliminary Blood No Growth after 24 hours Assessment and Plan Assessment: Impression: #1 Midsternal/left-sided chest pain, pleuritic in nature secondary to bilateral lower lobe infiltrates/atelectasis and small bilateral pleural effusions. #2 Leukocytosis secondary to suspected early bibasilar pneumonia. #3 History of previous tobacco dependence. #4 Hypertension. Plan: The patient was seen and evaluated by Dr. Aquino. Chest pain improved with s teroids. Possible early pneumonia. Maintained on ceftriaxone and azithromycin. Continue bronchodilators. Lovenox for DVT prophylaxis. Echocardiogram reveals preserved left ventricular function. We will continue to follow and make further recommendations based on his clinical status. Probable discharge later today or in a.m. I, the cosigning physician, performed a history & physical examination of the patient. Lungs sounds with few scattered rhonchi, crackles in the posterior bases. Maintaining good O2 saturations in the 90s on 2 L/m per nasal cannula. I discussed the assessment and plan of care with my nurse practitioner, Ora Cardenas. I attest to the above note as dictated by her.
--- NOTE | 2018-11-08 15:22 | P.PN ---
Subjective Progress Note Date: 11/08/18 This is a 83-year-old male patient of Dr. Altman. Patient presented with complaints of sharp chest pain that has occurs with coughing. Per patient's family member at bedside patient has been increasingly weak and tired over the past few weeks. Patient has reportedly had a cough for multiple weeks. Patient does have a past medical history of hypertension and ex-smoker. Chest x-ray completed showing there is left basal atelectasis or infiltrate noted. EKG completed showing sinus rhythm with frequent premature ventricular complexes, left anterior fascicle block. Initial troponin negative. WBC 21.2. Patient started on azithromycin and Rocephin. DuoNeb breathing treatments. Repeat to you a chest x-ray ordered for a.m. sputum and blood culture ordered. At this time patient denies chest pain and SOB. Patient denies nausea vomiting or diarrhea. Patient denies any urinary burning or frequency On 11/07/2018 patient is alert and oriented 3 resting in bed. Discussed with nursing staff that cardiac monitoring was ordered for this patient yesterday and patient is not currently on that. Nursing verbalized understanding we'll place patient on cardiac monitoring. Patient is still complaining of occasional chest pain while coughing. Nonproductive cough. At this time patient denies any nausea vomiting or diarrhea. Patient denies any urinary burning or frequency. Cardiology and pulmonary services have been consulted. On 11/08/2018 patient is currently alert and oriented 3. Patient feels much improved. Patient remains on IV steroids and IV line. Patient is currently on 2 L. Patient also had episode of tachycardia when off oxygen. Issue resolved when placed on 2 L nasal cannula. At this time patient denies chest pain or shortness of breath. Patient denies nausea vomiting or diarrhea. Patient denies any urinary burning or frequency Objective - Vital Signs Vital signs: Vital Signs Temp 97.6 F 11/08/18 11:09 Pulse 83 11/08/18 11:23 Resp 18 11/08/18 11:09 BP 135/79 11/08/18 11:09 Pulse Ox 93 L 11/08/18 11:09 Intake & Output 11/07/18 11/08/18 11/08/18 18:59 06:59 18:59 Intake Total 1490 1700 Balance 1490 1700 Intake: Oral 1490 1700 Other: Voiding Method Urinal Urinal # Voids 3 2 2 - Exam Head normocephalic Neck supple Lungs diminished bilaterally Heart regular rate and rhythm S1-S2, no rub or gallop Abdomen is soft nontender nondistended positive bowel sounds no hepatosplenomegaly Extremities no edema Neuro alert and orientated to 3 - Labs CBC & Chem 7: 11/08/18 08:10 11/08/18 08:10 Labs: Abnormal Lab Results - Last 24 Hours (Table) 11/08/18 11/08/18 Range/Units 08:10 08:10 WBC 12.5 H (3.8-10.6) k/uL Neutrophils # 11.1 H (1.3-7.7) k/uL Carbon Dioxide 31 H (22-30) mmol/L Glucose 160 H (74-99) mg/dL AST 16 L (17-59) U/L Microbiology - Last 24 Hours (Table) 11/06/18 15:30 Blood Culture - Preliminary Blood No Growth after 24 hours Assessment and Plan Assessment: 1. Chest pain . EKG completed showing sinus rhythm with frequent premature ventricular complexes. Left anterior fascicular block. Troponin negative 1. Cardiac monitoring ordered for patient. Nursing verbalized understanding. Per cardiology chest pain very typical for angina likely pleuritic in nature. 2-D echo completed showing EF of 55-60%. BNP 313. patient has been cleared by cardiology 2. Bibasilar pneumonia. Chest x-ray completed showing left basal atelectasis or infiltrate noted. Sputum culture ordered. Patient currently on azithromycin and Rocephin. Pulmonary service is consulted. White Blood cell trending down to 16.3. Repeat chest x-ray showing bilateral infiltrate and pleural effusion correlate for pneumonia otherwise consider CHF findings are stable 3. History of essential hypertension. Home meds resumed 4. Tachycardic. Patient had episode of sinus tachycardia related to ambulation without oxygen. Once oxygen was applied heart rate did improve to 90. Discussed with cardiology [employer] likely due to underlining pulmonary condition. No further workup at this time will continue to monitor for an additional 24 hours DVT prophylaxis Lovenox. GI prophylaxis Protonix Anticipate discharge in the next 24-48 hours I performed an examination of the patient and discussed their management with the Nurse Practitioner. I have reviewed the Nurse Practitioner's notes and agree with the documented findings and plan of care
[2018-11-08] MEDS: AZITHROMYCIN 500 MG TAB PO SCH (15:33)
[2018-11-08 20:50] VITALS: RESP 16
[2018-11-09] MEDS: IPRATROPIUM-ALBUTEROL 3 ML NEB INHALATION SCH ×2 (07:08→11:01)
[2018-11-09 07:47] LABS: Basophils % (A) 0 %; Eosinophils % (A) 0 %; HCT 43.2 % (39.0-53.0); HGB 13.9 gm/dL (13.0-17.5); Lymphocytes # (A) 0.9 k/uL (1.0-4.8); Lymphocytes % (A) 5 %; MCH 29.4 pg (25.0-35.0); MCHC 32.2 g/dL (31.0-37.0); MCV 91.1 fL (80.0-100.0); Mean Platelet Volume 7.6; Monocytes # (A) 0.9 k/uL (0-1.0); Monocytes % (A) 6 %; Neutrophils # (A) 14.4 k/uL (1.3-7.7); Neutrophils % (A) 88 %; Platelet Count 440 k/uL (150-450); RBC 4.75 m/uL (4.30-5.90); RDW 13.7 % (11.5-15.5); WBC 16.3 k/uL (3.8-10.6)
[2018-11-09 08:04] LABS: ALT 67 U/L (21-72); AST 67 U/L (17-59); Albumin 3.9 g/dL (3.5-5.0); Alkaline Phosphatase 62 U/L (38-126); Anion Gap 11 mmol/L; Blood Urea Nitrogen 28 mg/dL (9-20); Calcium 9.7 mg/dL (8.4-10.2); Carbon Dioxide 30 mmol/L (22-30); Chloride 99 mmol/L (98-107); Glucose 128 mg/dL (74-99); Potassium 4.6 mmol/L (3.5-5.1); Sodium 140 mmol/L (137-145); Total Bilirubin 0.6 mg/dL (0.2-1.3); Total Protein 6.9 g/dL (6.3-8.2)
[2018-11-09] MEDS: HYDROCHLOROTHIAZIDE 25 MG TAB PO SCH (08:41)
[2018-11-09] MEDS: PANTOPRAZOLE 40 MG TABLET PO SCH (08:41)
[2018-11-09] MEDS: ASPIRIN 81 MG PO SCH (08:41)
[2018-11-09] MEDS: ENOXAPARIN 40 MG/0.4 ML SYRINGE SQ SCH (08:41)
[2018-11-09] MEDS: methylPREDNISolone SOD SUCCI 40 MG/ML 1 ML VIAL IV SCH (08:41)
--- NOTE | 2018-11-09 11:02 | P.PN ---
Subjective Progress Note Date: 11/09/18 Principal diagnosis: Left sided pleuritic chest pain This is a very pleasant 83-year-old gentleman who follows with Dr. Altman as his primary care physician. He has a history of hypertension. He is a former smoker. On no inhalers or oxygen in the outpatient setting. He presented here to the emergency room yesterday with complaints of midsternal/left sharp stabbing intermittent chest pain. Worsens with coughing and deep breathing. Pale yellow productive sputum. No hemoptysis. Initial white count 21.2. Troponins negative. ProBNP 313. Chest x-ray shows bilateral infiltrates and pleural effusion. He's been initiated on ceftriaxone and azithromycin along with bronchodilators. Echocardiogram is pending. EKG revealed sinus rhythm and occasional PVCs. He is seen today in consultation on the regular medical floor. He is awake and alert in no acute distress. Still with occasional sharp right- sided chest discomfort. Maintaining O2 saturations in the 90s on 2 L/m per nasal cannula. He is afebrile. Hemodynamically stable. White count 16.3. Hemoglobin 14.4. Creatinine 0.79. The patient is seen today 11/08/2018 in follow-up on the regular medical floor. He is awake and alert in no acute distress. He is up ambulating in his room. He continues with a loose productive cough. No chills or night sweats. His left-sided chest discomfort has improved. He was placed on steroids yesterday. Blood culture reveals no growth. White count 12.5. Hemoglobin 14.8. Creatinine 0.73. He remains on bronchodilators, antibiotics, steroids. The patient is seen today 11/09/2018 in follow-up on the regular medical floor. He's been up ambulating with assistance. His oxygen does drop to 86% while walking on room air. Currently back in the 90s on 2 L/m per nasal cannula. He continues with a loose nonproductive cough. He is breathing quite a bit better today as compared to yesterday. White count 16.3. Hemoglobin 13.9. Creatinine 0.77. He's been maintained on ceftriaxone and azithromycin along with bronchodilators and IV Solu-Medrol. Objective - Vital Signs Vital signs: Vital Signs Temp 97.5 F L 11/09/18 05:00 Pulse 86 11/09/18 07:18 Resp 16 11/09/18 08:30 BP 138/69 11/09/18 05:00 Pulse Ox 92 L 11/09/18 10:21 Intake & Output 11/08/18 11/09/18 11/09/18 18:59 06:59 18:59 Intake Total 1700 660 Balance 1700 660 Intake: Oral 1700 660 Other: Voiding Method Urinal Urinal Urinal # Voids 2 3 - Exam GENERAL EXAM: Alert, ambulating, comfortable in no apparent distress. On 2 L nasal cannula. HEAD: Normocephalic. EYES: Normal reaction of pupils, equal size. NOSE: Clear with pink turbinates. THROAT: No erythema or exudates. NECK: No masses, no JVD. CHEST: No chest wall deformity. LUNGS: Equal air entry with few scattered rhonchi. CVS: S1 and S2 normal with no audible murmur, regular rhythm. ABDOMEN: No hepatosplenomegaly, normal bowel sounds, no guarding or rigidity. SPINE: Kyphoscoliosis SKIN: No rashes CENTRAL NERVOUS SYSTEM: No focal deficits, tone is normal in all 4 extremities. EXTREMITIES: There is no peripheral edema. No clubbing, no cyanosis. Peripheral pulses are intact. - Labs CBC & Chem 7: 11/09/18 06:47 11/09/18 06:47 Labs: Abnormal Lab Results - Last 24 Hours (Table) 11/09/18 11/09/18 Range/Units 06:47 06:47 WBC 16.3 H (3.8-10.6) k/uL Neutrophils # 14.4 H (1.3-7.7) k/uL Lymphocytes # 0.9 L (1.0-4.8) k/uL BUN 28 H (9-20) mg/dL Glucose 128 H (74-99) mg/dL AST 67 H (17-59) U/L Microbiology - Last 24 Hours (Table) 11/06/18 15:30 Blood Culture - Preliminary Blood No Growth after 48 hours Assessment and Plan Assessment: Impression: #1 Midsternal/left-sided chest pain, pleuritic in nature secondary to bilateral lower lobe infiltrates/atelectasis and small bilateral pleural effusions. #2 Leukocytosis secondary to suspected early bibasilar pneumonia. #3 History of previous tobacco dependence. #4 Hypertension. Plan: The patient was seen and evaluated by Dr. Aquino. Follow-up chest x-ray pending. Maintained on ceftriaxone and azithromycin. IV Solu-Medrol, bronchodilators. Lovenox for DVT prophylaxis. The patient did desaturate to 86% while walking on room air. We will continue to follow and make further recommendations based on his clinical status. I, the cosigning physician, performed a history & physical examination of the patient. Lungs sounds with few scattered rhonchi, crackles in the posterior bases. Maintaining good O2 saturations in the 90s on 2 L/m per nasal cannula. I discussed the assessment and plan of care with my nurse practitioner, Ora Cardenas. I attest to the above note as dictated by her.
[2018-11-09 11:56] VITALS: BP 145/79; PULSE 93; TEMP 97.8
--- NOTE | 2018-11-09 12:12 | P.PN ---
Progress Note - Text Received a call from primary care NURSING HOME ASSISTANT ADMINISTRATOR regarding an episode of tachycardia earlier in the day of approximately 113 bpm in the setting of hypoxia when his oxygen was removed. Pulse ox documented at 88%. Telemetry tracings indicate sinus mechanism with PVC's. We had seen the patient in consultation a day prior and deemed his pleuritic chest pain to be non-cardiac and signed off the case. Treatment of sinus tachycardia is to treat the underlying cause, in this case hypoxia. Defer to primary care team to further evaluate and treat.
--- NOTE | 2018-11-09 12:30 | P.DS ---
Providers Date of admission: 11/08/18 13:30 Expected date of discharge: 11/09/18 Attending physician: Charlie Galvin Consults: 11/06/18 15:33 Consult Physician Routine Consulting Provider: Jacqueline Murphy Consult Reason/Comments: Chest pain Do you want consulting provider notified?: Yes 11/06/18 15:34 Consult Physician Routine Consulting Provider: Felicia Aquino Consult Reason/Comments: Pneumonia Do you want consulting provider notified?: Yes Primary care physician: Robinson Altman Hospital Course: Discharge diagnosis 1. Chest pain . EKG completed showing sinus rhythm with frequent premature ventricular complexes. Left anterior fascicular block. Troponin negative 1. Cardiac monitoring ordered for patient. Nursing verbalized understanding. Per cardiology chest pain very typical for angina likely pleuritic in nature. 2-D echo completed showing EF of 55-60%. BNP 313. patient has been cleared by cardiology 2. Bibasilar pneumonia. Chest x-ray completed showing left basal atelectasis or infiltrate noted. Sputum culture ordered. Patient currently on azithromycin and Rocephin. Pulmonary service is consulted. White Blood cell trending down to 16.3. Repeat chest x-ray showing bilateral infiltrate and pleural effusion correlate for pneumonia otherwise consider CHF findings are stable. Patient has been cleared by pulmonary services 3. History of essential hypertension. Home meds resumed 4. Tachycardic. Patient had episode of sinus tachycardia related to ambulation without oxygen. Once oxygen was applied heart rate did improve to 90. Discussed with cardiology ASSOCIATE ATTORNEY likely due to underlining pulmonary condition. No further workup at this time will continue to monitor for an additional 24 hours. Resolved patient does require home O2 Home O2 test performed. Patient does require home O2 Hospital course This is a 83-year-old male patient of Dr. Altman. Patient presented with complaints of sharp chest pain that has occurs with coughing. Per patient's family member at bedside patient has been increasingly weak and tired over the past few weeks. Patient has reportedly had a cough for multiple weeks. Patient does have a past medical history of hypertension and ex-smoker. Chest x-ray completed showing there is left basal atelectasis or infiltrate noted. EKG completed showing sinus rhythm with frequent premature ventricular complexes, left anterior fascicle block. Initial troponin negative. WBC 21.2. Patient started on azithromycin and Rocephin. DuoNeb breathing treatments. Repeat to you a chest x-ray ordered for a.m. sputum and blood culture ordered. At this time patient denies chest pain and SOB. Patient denies nausea vomiting or diarrhea. Patient denies any urinary burning or frequency On 11/07/2018 patient is alert and oriented 3 resting in bed. Discussed with nursing staff that cardiac monitoring was ordered for this patient yesterday and patient is not currently on that. Nursing verbalized understanding we'll place patient on cardiac monitoring. Patient is still complaining of occasional chest pain while coughing. Nonproductive cough. At this time patient denies any nausea vomiting or diarrhea. Patient denies any urinary burning or frequency. Cardiology and pulmonary services have been consulted. On 11/08/2018 patient is currently alert and oriented 3. Patient feels much improved. Patient remains on IV steroids and IV line. Patient is currently on 2 L. Patient also had episode of tachycardia when off oxygen. Issue resolved when placed on 2 L nasal cannula. At this time patient denies chest pain or shortness of breath. Patient denies nausea vomiting or diarrhea. Patient denies any urinary burning or frequency On 11/09/2018 patient is alert and oriented. Patient feels ready eager to go home. Patient will be discharged on prednisone taper and Ceftin for one more week. Patient does require home O2 test performed. Patient denies chest pain or shortness of breath. Patient denies nausea vomiting or diarrhea. Denies urinary burning or frequency. I performed an examination of the patient and discussed their management with the Nurse Practitioner. I have reviewed the Nurse Practitioner's notes and agree with the documented findings and plan of care Patient Condition at Discharge: Stable Plan - Discharge Summary Discharge Rx Participant: No New Discharge Prescriptions: New Cefuroxime Axetil [Ceftin] 500 mg PO BID 7 Days #14 tab predniSONE 10 mg PO DIRECTED 12 Days #30 tab Continue Hydrochlorothiazide [Hydrodiuril] 25 mg PO DAILY Aspirin EC [Ecotrin Low Dose] 81 mg PO DAILY Discharge Medication List Hydrochlorothiazide [Hydrodiuril] 25 mg PO DAILY 02/23/14 [History] Aspirin EC [Ecotrin Low Dose] 81 mg PO DAILY 11/06/18 [History] Cefuroxime Axetil [Ceftin] 500 mg PO BID 7 Days #14 tab 11/09/18 [Rx] predniSONE 10 mg PO DIRECTED 12 Days #30 tab 11/09/18 [Rx] Follow up Appointment(s)/Referral(s): Felicia Aquino MD [STAFF PHYSICIAN] - 1 Week Robinson Altman MD [Primary Care Provider] - 1-2 days Activity/Diet/Wound Care/Special Instructions: pt will be going home with home o2
--- NOTE | 2018-11-09 14:40 | XR ---
EXAMINATION TYPE: XR chest 2V DATE OF EXAM: 11/09/2018 COMPARISON: 11/07/2018 TECHNIQUE: PA and lateral views submitted. HISTORY: Pneumonia FINDINGS: Hypertrophic and degenerative change of the spine. There is improving infiltrate bilaterally with per sistent areas of consolidation and pleural effusion greater on the left. The lateral view now demonst rates a more masslike consolidation posteriorly suggestive of a pleural-based mass or fluid collectio n measuring approximately 3 cm. IMPRESSION: 1. Improving bilateral infiltrate with persistent left-sided small effusion. There does appear to be a pleural-based 3 cm mass or fluid collection on the lateral view posteriorly for which CT of the [facility] st is recommended.
== END 2018-11-09 16:05 | disposition home or self-care (01) | DRG 195 ==
LOC: EC 13:02 → 3NMEDONC 14:51 → OBSVTOIN 11-08 13:30
PROVIDERS: ADMIT Internal Medicine; ATTEND Internal Medicine
DX: J18.9 Pneumonia, unspecified organism (principal); I10 Essential (primary) hypertension; I49.3 Ventricular premature depolarization; I44.4 Left anterior fascicular block; R00.0 Tachycardia, unspecified; Z87.891 Personal history of nicotine dependence; Z79.82 Long term (current) use of aspirin; Z79.899 Other long term (current) drug therapy
CPT/HCPCS: 36415; 71046; 80053; 82550; 82553; 83735; 83880; 84484; 85025; 85610; 85730; 87040; 93005; 93306; 94640; 96365; 96367; 99285

== ENCOUNTER 2020-02-15 07:39 | Day surgery (SDC) | payer MEDICARE ==
[2020-02-15 08:35] VITALS: TEMP 98.3
[2020-02-15] MEDS ORDERED: diazePAM 5 MG TAB PO STA (08:39)
--- NOTE | 2020-02-15 15:50 | FL ---
EXAMINATION TYPE: FL myelogram lumbosacral DATE OF EXAM: 02/15/2020 COMPARISON: NONE HISTORY: Lower back pain Informed consent was obtained and all the patient's questions were answered. The L5-S1 level was loc alized under fluoroscopy. Standard sterile technique was utilized as well as appropriate local anest hesia 1% Lidocaine. Spinal needle was introduced into the thecal sac under fluoroscopic guidance, wi th good return of pulsatile CSF seen in the hub of the needle for a moment, then no additional CSF re turn was obtained. The L4-L5 level was subsequently localized under fluoroscopy. Additional 1% lidoca ine was used for local anesthesia. Attempted needle introduction into the thecal sac under fluoroscop ic guidance was performed. Patient requested termination of procedure due to significant knee pain on the fluoroscopy table. Total fluoroscopy time 1 minute 6 seconds. IMPRESSION: Unsuccessful myelography of the lumbar spine, with termination of procedure at patient re quest due to significant knee pain.
[2020-02-15 16:42] VITALS: RESP 16
[2020-02-15 16:45] VITALS: BP 145/80; PULSE 86
== END 2020-02-15 13:20 | disposition home or self-care (01) ==
LOC: RADPROMAIN 07:39
PROVIDERS: ATTEND Physical Medicine & Rehabilitation
DX: M51.17 Intervertebral disc disorders with radiculopathy, lumbosacral region (principal); R20.2 Paresthesia of skin; R60.9 Edema, unspecified; Z79.891 Long term (current) use of opiate analgesic; Z79.899 Other long term (current) drug therapy; I10 Essential (primary) hypertension; H91.90 Unspecified hearing loss, unspecified ear; M25.569 Pain in unspecified knee; Z97.3 Presence of spectacles and contact lenses; Z82.49 Family history of ischemic heart disease and other diseases of the circulatory system; Z87.891 Personal history of nicotine dependence; Z53.8 Procedure and treatment not carried out for other reasons
CPT/HCPCS: 62304; J2001

== ENCOUNTER → 2020-11-26 | Outpatient (CLI) | payer MEDICARE ==
--- NOTE | 2020-12-03 10:23 | P.ARTDOP ---
Arterial Doppler LOWER EXTREMITY ARTERIAL DOPPLER: DATE OF SERVICE: 11/26/2020 Reason for study: Suspect PAD. Doppler waveforms: Multiphasic bilaterally throughout. Pulse volume recording: []. Pressure gradients: None of significance. Ankle-brachial indices: 0.98 on the right and 0.94 on the left. Toe brachial indices: 0.68 on the right, 0.6 on the left Impression: Normal study..
== END | disposition home or self-care (01) ==
LOC: RADUSWWP 12:40
PROVIDERS: ATTEND Podiatrist
DX: I73.9 Peripheral vascular disease, unspecified (principal)
CPT/HCPCS: 93923

== ENCOUNTER → 2022-07-07 | Outpatient (CLI) | payer MEDICARE ==
--- NOTE | 2022-07-07 13:09 | US ---
EXAMINATION TYPE: US venous doppler duplex LE RT DATE OF EXAM: 07/07/2022 12:56 PM COMPARISON: NONE CLINICAL HISTORY: R22.41 SWELLING, MASS AND LUMP, M79.661 PAIN. SIDE PERFORMED: Right TECHNIQUE: The lower extremity deep venous system is examined utilizing real time linear array sonog daljit with graded compression, doppler sonography and color-flow sonography. VESSELS IMAGED: Common Femoral Vein Deep Femoral Vein Greater Saphenous Vein * Femoral Vein Popliteal Vein Small Saphenous Vein * Proximal Calf Veins (* superficial vessels) There is an abnormal complex fluid collection right popliteal fossa, posterior to vessels measuring 5.1 x 1.9 x 3.1 cm. Joint effusion is suspected. Recommend MRI for additional evaluation. Right Leg: Negative for DVT Office is notified of the results at time of imaging. IMPRESSION: 1. No deep venous thrombosis right lower extremity. 2. Complex fluid collection which may be adjacent to the joint space. Recommend MRI of the knee for a dditional evaluation.
== END | disposition home or self-care (01) ==
LOC: RADUSWWP 12:26
PROVIDERS: ATTEND Internal Medicine
DX: M79.661 Pain in right lower leg (principal); R22.41 Localized swelling, mass and lump, right lower limb

== ENCOUNTER → 2023-08-23 | Outpatient (CLI) | payer MEDICARE ==
--- NOTE | 2023-08-23 13:23 | US ---
EXAMINATION TYPE: US venous doppler duplex LE LT DATE OF EXAM: 08/23/2023 12:56 PM COMPARISON: NONE CLINICAL INDICATION: Male, 87 years old with history of M79.662 PAIN IN LEFT LOWER LEG; Pain. Patient does not take blood thinners. No hx of DVT. SIDE PERFORMED: Left TECHNIQUE: The lower extremity deep venous system is examined utilizing real time linear array sonog daljit with graded compression, doppler sonography and color-flow sonography. VESSELS IMAGED: Common Femoral Vein Deep Femoral Vein Greater Saphenous Vein * Femoral Vein Popliteal Vein Small Saphenous Vein * Proximal Calf Veins (* superficial vessels) Left Leg: No evidence of DVT. IMPRESSION: No evidence for DVT within the left lower extremity imaged from the groin to the upper c [facility].
== END | disposition home or self-care (01) ==
LOC: RADUSWWP 12:10
PROVIDERS: ATTEND Internal Medicine
DX: M79.662 Pain in left lower leg (principal)

== ENCOUNTER 2023-12-13 08:38 | Inpatient (IN) | payer MEDICARE ==
--- NOTE | 2023-12-13 09:14 | ED ---
General Adult HPI - General Chief complaint: Back Pain/Injury Stated complaint: fall Time Seen by Provider: 12/13/23 08:50 Source: patient, family, RN notes reviewed Mode of arrival: wheelchair Limitations: no limitations - History of Present Illness Initial comments: Patient is a 88-year-old male present to the emergency department with with complaints of low back pain. Patient has chronic low back pain and knee problems. Patient did slide out of bed last night. Patient needed assistance getting back into bed. Patient does have increase in his chronic back pain at this time. Patient is receptive to a pain shot. Patient denies any chest pain or dyspnea. No head injury or loss of consciousness. No neck pain. No abdominal or chest pain. No extremity injury. No history of chronic lung disease - Related Data Home Medications Medication Instructions Recorded Confirmed Furosemide [Lasix] 40 mg PO DAILY 02/01/20 12/13/23 HYDROcodone/APAP 7.5-325MG [[place] 1 tab PO Q8H PRN 12/13/23 12/13/23 7.5-325] Ketoconazole 2% Cream [Nizoral 2%] 1 applic TOPICAL DAILY PRN 12/13/23 12/13/23 traZODone HCL 150 mg PO HS PRN 12/13/23 12/13/23 Allergies Allergy/AdvReac Type Severity Reaction Status Date / Time No Known Allergies Allergy Verified 12/13/23 10:04 Review of Systems ROS Statement: Those systems with pertinent positive or pertinent negative responses have been documented in the HPI. ROS Other: All systems not noted in ROS Statement are negative. Constitutional: Denies: fever Eyes: Denies: eye pain ENT: Denies: ear pain Respiratory: Reports: as per HPI. Denies: cough, dyspnea Cardiovascular: Denies: chest pain Musculoskeletal: Reports: as per HPI, back pain Past Medical History Past Medical History: Hypertension, Osteoarthritis (OA) Additional Past Medical History / Comment(s): back pain, leg pain History of Any Multi-Drug Resistant Organisms: None Reported Past Surgical History: Orthopedic Surgery Additional Past Surgical History / Comment(s): steriod injections in back Past Anesthesia/Blood Transfusion Reactions: No Reported Reaction Past Psychological History: No Psychological Hx Reported Smoking Status: Former smoker Past Alcohol Use History: Occasional Past Drug Use History: Unable to Obtain - Past Family History Mother Family Medical History: No Reported History General Exam Limitations: no limitations General appearance: alert, in no apparent distress Head exam: Present: normocephalic Eye exam: Present: normal appearance ENT exam: Present: normal oropharynx Neck exam: Present: normal inspection. Absent: tenderness Respiratory exam: Present: normal lung sounds bilaterally. Absent: respiratory distress, wheezes, decreased breath sounds Cardiovascular Exam: Present: regular rate, normal rhythm GI/Abdominal exam: Present: soft. Absent: tenderness Extremities exam: Present: normal inspection, full ROM. Absent: tenderness Back exam: Present: vertebral tenderness (Mild lower lumbar) Neurological exam: Present: alert. Absent: motor sensory deficit Psychiatric exam: Present: normal affect, normal mood Skin exam: Present: normal color Course Vital Signs 12/13/23 12/13/23 12/13/23 08:40 08:52 08:55 Temperature 98.6 F Pulse Rate 102 H 100 Respiratory 20 Rate Blood Pressure 115/55 129/76 O2 Sat by Pulse 86 L 87 L 92 L Oximetry 12/13/23 12/13/23 10:13 12:51 Temperature Pulse Rate 91 84 Respiratory 16 20 Rate Blood Pressure 119/61 124/65 O2 Sat by Pulse 95 94 L Oximetry EKG Findings - EKG Results: EKG: interpreted by ERMD (Occasional PVCs present. Right bundle branch block. Left axis.), sinus rhythm, normal ST/T Procedures - ABG Interpretation Ph: 7.417 PCO2: 49.5 PO2: 52.7 Medical Decision Making - Medical Decision Making Was pt. sent in by a medical professional or institution ([facility], FIELD SALES TRAINER, urgent care, hospital, or usp...) When possible be specific @ -No Did you speak to anyone other than the patient for history (EMS, parent, family, police, friend...)? What history was obtained from this source @ - helps provide history as patient is hard of hearing Did you review nursing and triage notes (agree or disagree)? Why? @ -I reviewed and agree with nursing and triage notes Were old charts reviewed (outside hosp., previous admission, EMS record, old EKG, old radiological studies, urgent care reports/EKG's, usp records)? Report findings @ -No old charts were reviewed Differential Diagnosis (chest pain, altered mental status, abdominal pain women, abdominal pain men, vaginal bleeding, weakness, fever, dyspnea, syncope, h eadache, dizziness, GI bleed, back pain, seizure, CVA, palpatations, mental health, musculoskeletal)? @ -Differential Back Pain: Strain, zoster, cauda equina syndrome, epidural abscess, vertebral os teomyelitis, discitis, fracture, subluxation, disc herniation, DJD, spinal stenosis, dissection, AAA, pancreatitis, peptic ulcer disease, pyelonephritis, kidney stone, this is not meant to be an all-inclusive list. Differential Dyspnea: Coronary syndrome, arrhythmia, tamponade, asthma, COPD, pulmonary embolism, pneumonia, pneumothorax, pulmonary effusion, anaphylaxis, diabetic ketoacidosis, flailed chest, pulmonary contusion, diaphragmatic rupture, anemia, neuromuscular, this is not meant to be an all-inclusive list. EKG interpreted by me (3pts min.). @ -As above X-rays interpreted by me (1pt min.). @ -Lumbar x-ray shows degenerative changes. Chest x-ray shows questionable interstitial changes lower. Pulmonary nodule. CT interpreted by me (1pt min.). @ -CT angio of the chest shows no pulmonary embolism. Bibasilar patchy groundglass consolidation. Pulmonary nodules. U/S interpreted by me (1pt. min.). @ -None done What testing was considered but not performed or refused? (CT, X-rays, U/S, labs)? Why? @ -None What meds were considered but not given or refused? Why? @ -None Did you discuss the management of the patient with other professionals (professionals i.e. , PA, FIELD SALES TRAINER, lab, RT, psych nurse, social work case manager, helpdesk administrator, teacher, life science technical officer, case reviewer)? Give summary @ -Case discussed with Dr. Galvin who will admit his patient Was smoking cessation discussed for >3mins.? @ -I discussed smoking cessation for greater than 3 minutes. The risks of smoking were discussed with the patient including but not limited to wrist of cancer, stroke, coronary artery disease, and COPD. Also discussed with the patient were multiple methods of quitting smoking. Lastly, we discussed the financial cost of smoking. Was critical care preformed (if so, how long)? @ -33 minutes critical care time Were there social determinants of health that impacted care today? How? (Home lessness, low income, unemployed, alcoholism, drug addiction, transportation, low edu. Level, literacy, decrease access to med. care, residential, rehab)? @ -No Was there de-escalation of care discussed even if they declined (Discuss DNR or withdrawal of care, Hospice)? DNR status @ -No What co-morbidities impacted this encounter? (DM, HTN, Smoking, COPD, CAD, Cancer, CVA, ARF, Chemo, Hep., AIDS, mental health diagnosis, sleep apnea, morbid obesity)? @ -History of chronic back problems. History of smoking Was patient admitted / discharged? Hospital course, mention meds given and route, prescriptions, significant lab abnormalities, going to OR and other pertinent info. @ -Patient presents with mild back discomfort following a fall, somewhat chronic. However patient is hypoxic. Investigation is concerning for pneumonia. Patient will be admitted with oxygen and IV antibiotics. There is concern for pneumonia diagnosed at 12:50 PM. Blood culture and lactic acid and IV antibiotics will be ordered. Undiagnosed new problem with uncertain prognosis? @ -No Drug Therapy requiring intensive monitoring for toxicity (Heparin, Nitro, Insulin, Cardizem)? @ -No Were any procedures done? @ -No Diagnosis/symptom? @ -Pneumonia, sepsis Acute, or Chronic, or Acute on Chronic? @ -Acute, acute Uncomplicated (without systemic symptoms) or Complicated (systemic symptoms)? @ -Complicated with hypoxia Side effects of treatment? @ -No Exacerbation, Progression, or Severe Exacerbation? @ -No Poses a threat to life or bodily function? How? (Chest pain, [place], [place], pneumonia, PE, COPD, DKA, ARF, appy, cholecystitis, CVA, Diverticulitis, Homicidal, Suicidal, threat to staff... and all critical care pts) @ -Threat to pulmonary function and oxygenation of organ - Lab Data Result diagrams: 12/13/23 10:26 12/13/23 10:26 Lab Results 12/13/23 12/13/23 12/13/23 Range/Units 10:04 10: 10: WBC 12.8 H (3.8-10.6) k/uL RBC 4.67 (4.30-5.90) m/uL Hgb 13.8 (13.0-17.5) gm/dL Hct 41.5 (39.0-53.0) % MCV 88.9 (80.0-100.0) fL MCH 29.6 (25.0-35.0) pg MCHC 33.3 (31.0-37.0) g/dL RDW 13.7 (11.5-15.5) % Plt Count 195 (150-450) k/uL MPV 8.4 Neutrophils % 87 % Lymphocytes % 6 % Monocytes % 4 % Eosinophils % 1 % Basophils % 0 % Neutrophils # 11.1 H (1.3-7.7) k/uL Lymphocytes # 0.8 L (1.0-4.8) k/uL Monocytes # 0.6 (0-1.0) k/uL Eosinophils # 0.2 (0-0.7) k/uL Basophils # 0.1 (0-0.2) k/uL PT 12.4 (10.0-12.5) sec INR 1.2 H (<1.2) APTT 25.4 (22.0-30.0) sec D-Dimer 8.09 H (<0.60) mg/L FEU Sample Site rrad ABG pH 7.42 (7.35-7.45) ABG pCO2 50 H (35-45) mmHg ABG pO2 53 L* (83-108) mmHg ABG HCO3 32 H (21-25) mmol/L ABG Total CO2 33 H (19-24) mmol/L ABG O2 Saturation 88.9 L (94-97) % ABG Base Excess 6.1 mmol/L Guillaume Test Yes FiO2 24 % Sodium (137-145) mmol/L Potassium (3.5-5.1) mmol/L Chloride (98-107) mmol/L Carbon Dioxide (22-30) mmol/L Anion Gap mmol/L BUN (9-20) mg/dL Creatinine (0.66-1.25) mg/dL Est GFR (CKD-EPI)AfAm (>60 ml/min/1.73 sqM) Est GFR (CKD-EPI)NonAf (>60 ml/min/1.73 sqM) Glucose (74-99) mg/dL Plasma Lactic Acid Min (0.7-2.0) mmol/L Calcium (8.4-10.2) mg/dL Magnesium (1.6-2.3) mg/dL Total Bilirubin (0.2-1.3) mg/dL AST (17-59) U/L ALT (4-49) U/L Alkaline Phosphatase (38-126) U/L Troponin I (0.000-0.034) ng/mL NT-Pro-B Natriuret Pep pg/mL Total Protein (6.3-8.2) g/dL Albumin (3.5-5.0) g/dL 12/13/23 12/13/23 12/13/23 Range/Units 10:26 10:26 10:26 WBC (3.8-10.6) k/uL RBC (4.30-5.90) m/uL Hgb (13.0-17.5) gm/dL Hct (39.0-53.0) % MCV (80.0-100.0) fL MCH (25.0-35.0) pg MCHC (31.0-37.0) g/dL RDW (11.5-15.5) % Plt Count (150-450) k/uL MPV Neutrophils % % Lymphocytes % % Monocytes % % Eosinophils % % Basophils % % Neutrophils # (1.3-7.7) k/uL Lymphocytes # (1.0-4.8) k/uL Monocytes # (0-1.0) k/uL Eosinophils # (0-0.7) k/uL Basophils # (0-0.2) k/uL PT (10.0-12.5) sec INR (<1.2) APTT (22.0-30.0) sec D-Dimer (<0.60) mg/L FEU Sample Site ABG pH (7.35-7.45) ABG pCO2 (35-45) mmHg ABG pO2 (83-108) mmHg ABG HCO3 (21-25) mmol/L ABG Total CO2 (19-24) mmol/L ABG O2 Saturation (94-97) % ABG Base Excess mmol/L Guillaume Test FiO2 % Sodium 137 (137-145) mmol/L Potassium 3.6 (3.5-5.1) mmol/L Chloride 102 (98-107) mmol/L Carbon Dioxide 33 H (22-30) mmol/L Anion Gap 2 mmol/L BUN 20 (9-20) mg/dL Creatinine 0.72 (0.66-1.25) mg/dL Est GFR (CKD-EPI)AfAm >90 (>60 ml/min/1.73 sqM) Est GFR (CKD-EPI)NonAf 83 (>60 ml/min/1.73 sqM) Glucose 110 H (74-99) mg/dL Plasma Lactic Acid Min 1.1 (0.7-2.0) mmol/L Calcium 8.8 (8.4-10.2) mg/dL Magnesium 1.9 (1.6-2.3) mg/dL Total Bilirubin 3.2 H (0.2-1.3) mg/dL AST 33 (17-59) U/L ALT 15 (4-49) U/L Alkaline Phosphatase 78 (38-126) U/L Troponin I 0.050 H* (0.000-0.034) ng/mL NT-Pro-B Natriuret Pep 1530 pg/mL Total Protein 6.0 L (6.3-8.2) g/dL Albumin 3.5 (3.5-5.0) g/dL Critical Care Time Critical Care Time: Yes Disposition Clinical Impression: Pneumonia, Hypoxia, Sepsis Disposition: ADMITTED IP TO THIS HOSP Condition: Serious Is patient prescribed a controlled substance at d/c from ED?: No Referrals: Charlie Galvin MD [Primary Care Provider] - 1-2 days Time of Disposition: 13:01
[2023-12-13] MEDS: MORPHINE SULFATE 4 MG/ML SYRINGE IM STA (09:18)
[2023-12-13] MEDS: KETOROLAC 15 MG/ML 1 ML VIAL IM STA (09:20)
--- NOTE | 2023-12-13 10:00 | XR ---
EXAMINATION TYPE: XR chest 2V DATE OF EXAM: 12/13/2023 COMPARISON: 11/09/2018 TECHNIQUE: PA and lateral views submitted. HISTORY: Pain FINDINGS: There is prominence of the upper mediastinum likely representing ectatic vasculature or thyroid. Custodial Aide pilar deformity of the left clavicle with bilateral shoulder arthropathy and diffuse osteopenia. Patchy interstitial changes involving both lung bases. Heart size mildly prominent. Atherosclerotic change aorta. Linear density right upper lobe compatible scarring or atelectasis. Cannot exclude a pulmonary nodule.. Heart size normal and no overt failure. Osseous structures demonstrate hypertrophic and de generative changes of the spine. IMPRESSION: 1. Patchy interstitial and basilar atelectasis. Underlying bronchitis or interstitial pneumonitis not excluded. 2. 1 cm right upper lobe pulmonary nodule short-term follow-up CT chest recommended.
--- NOTE | 2023-12-13 10:01 | XR ---
EXAM TYPE: LUMBAR SPINE X RAY SERIES COMPARISON: NONE HISTORY: Pain TECHNIQUE: 4 views are submitted. FINDINGS: Alignment is anatomic. The pedicles are intact. The transverse processes are intact. There is diff use osteopenia with multilevel hypertrophic and degenerative disc disease. Vascular calcifications no horacio. No compression deformities. Multilevel facet arthropathy and degenerative disc disease. A basila r atelectasis or scarring. Underlying infiltrate not entirely excluded. IMPRESSION: 1. Diffuse osteopenia with multilevel degenerative disc disease and facet arthropathy.
[2023-12-13 10:06] LABS: ABG Base Excess 6.1 mmol/L; ABG HCO3 32 mmol/L (21-25); ABG Oxygen Saturation 88.9 % (94-97); ABG PCO2 50 mmHg (35-45); ABG PH 7.42 (7.35-7.45); ABG TCO2 33 mmol/L (19-24); Allen Test Performed? Yes
[2023-12-13 10:09] LABS: ABG PO2 53 mmHg (83-108)
[2023-12-13 10:41] LABS: Basophils # (A) 0.1 k/uL (0-0.2); Basophils % (A) 0 %; Eosinophils # (A) 0.2 k/uL (0-0.7); Eosinophils % (A) 1 %; HCT 41.5 % (39.0-53.0); HGB 13.8 gm/dL (13.0-17.5); Lymphocytes # (A) 0.8 k/uL (1.0-4.8); Lymphocytes % (A) 6 %; MCH 29.6 pg (25.0-35.0); MCHC 33.3 g/dL (31.0-37.0); MCV 88.9 fL (80.0-100.0); Mean Platelet Volume 8.4; Monocytes # (A) 0.6 k/uL (0-1.0); Monocytes % (A) 4 %; Neutrophils # (A) 11.1 k/uL (1.3-7.7); Neutrophils % (A) 87 %; Platelet Count 195 k/uL (150-450); RBC 4.67 m/uL (4.30-5.90); RDW 13.7 % (11.5-15.5); WBC 12.8 k/uL (3.8-10.6)
[2023-12-13 10:47] LABS: ALT 15 U/L (4-49); AST 33 U/L (17-59); African American GFR (CKD) >90 (>60 ml/min/1.73 sqM); Albumin 3.5 g/dL (3.5-5.0); Alkaline Phosphatase 78 U/L (38-126); Anion Gap 2 mmol/L; Blood Urea Nitrogen 20 mg/dL (9-20); Calcium 8.8 mg/dL (8.4-10.2); Carbon Dioxide 33 mmol/L (22-30); Chloride 102 mmol/L (98-107); Glucose 110 mg/dL (74-99); Magnesium 1.9 mg/dL (1.6-2.3); Non-African American GFR(CKD) 83 (>60 ml/min/1.73 sqM); Potassium 3.6 mmol/L (3.5-5.1); Sodium 137 mmol/L (137-145); Total Bilirubin 3.2 mg/dL (0.2-1.3)
[2023-12-13 10:56] LABS: NT-Pro-B-Type Natriuretic Pept 1530 pg/mL
[2023-12-13 10:57] LABS: INR 1.2 (<1.2); Partial Thromboplastin Time 25.4 sec (22.0-30.0); Prothrombin Time 12.4 sec (10.0-12.5)
--- NOTE | 2023-12-13 12:39 | CT ---
EXAMINATION TYPE: CT angio chest CT DLP: 377.7 mGycm, Automated exposure control for dose reduction was used. DATE OF EXAM: 12/13/2023 12:22 PM COMPARISON: Chest radiograph from same day. CLINICAL INDICATION:Male, 88 years old with history of hypoxia; Hypoxia TECHNIQUE/CONTRAST: CTA scan of the thorax is performed without and with IV Contrast, patient injected with 100 ml mL of Isovue 370, pulmonary embolism protocol. MIP images are created and reviewed. FINDINGS: Pulmonary Artery: There is no evidence for a filling defect within the pulmonary vasculature to sugge st acute pulmonary embolism. The pulmonary artery is of normal size. Lungs/Pleura: No pleural effusion or pneumothorax. Bibasilar patchy groundglass and consolidative opa cities. Calcified pleural plaque identified within the right anterior midlung. Additional scattered s maller pleural calcified and noncalcified plaques identified. Few scattered pulmonary nodules with ex ams including a left lower lobe 6.5 mm pulmonary nodule (series 406, image 107) and a right midlung 4 mm pulmonary nodule (series 406, image 66).. Respiratory motion limits evaluation. Airway: Large airways are patent. Heart: The heart is mildly enlarged for size.. No pericardial effusion. Vasculature: No evidence of aortic aneurysm. Atherosclerotic calcification of the aorta and its branc hes. Mediastinum: Moderate mediastinal lymph nodes measuring less than 1 cm short axis. Enlarged right hil ar lymph nodes measuring up to 1.7 cm short axis (series 401, image 76). Musculoskeletal: No acute osseous abnormalities. Remote right-sided rib fractures. Moderate multileve l degenerative disc disease. Soft Tissues: Unremarkable. Lower neck: No significant findings. Upper Abdomen: No significant findings.. IMPRESSION: 1. No evidence of pulmonary embolism. 2. Bibasilar patchy groundglass and consolidative opacities concerning for pneumonia. 3. Mediastinal and hilar lymphadenopathy likely reactive to #2. Attention on follow-up exam. 4. Scattered calcified pleural plaques. Correlate for prior asbestos exposure. 5. Few scattered pulmonary nodules measuring up to 6.5 mm. Follow-up CT chest in 6 months is recommen ded for assessment of the pulmonary nodules.
[2023-12-13] MEDS ORDERED: PNEUMONIA PROTOCOL UTILIZED 1 EACH MISC PO PRN (13:02)
[2023-12-13] MEDS ORDERED: IPRATROPIUM-ALBUTEROL 3 ML NEB INHALATION PRN (13:02)
[2023-12-13] MEDS: SODIUM CHLORIDE 0.9% 1,000 ML IV STA (14:12)
[2023-12-13] MEDS ORDERED: traZODone HCL 50 MG TAB PO PRN (14:34)
[2023-12-13] MEDS: AZITHROMYCIN 500 MG in SODIUM CHLORIDE 0.9% 250 ML IVPB STA (14:42)
[2023-12-13] MEDS: HYDROcodone/APAP 7.5-325MG 1 EACH TAB PO PRN (21:08)
[2023-12-14] MEDS ORDERED: ALBUTEROL NEBULIZED 2.5 MG/3 ML INHALATION PRN (03:58)
--- NOTE | 2023-12-14 04:06 | P.CNPUL ---
History of Present Illness Consult date: 12/14/23 Requesting physician: Jn Gaines Reason for consult: hypoxemia Chief complaint: Severe lumbar back pain History of present illness: Patient is a 88-year-old white male with past medical history significant for pneumonia, hypertension, chronic lower back pain, and current ongoing tobacco dependence. Patient presented emergency room yesterday morning complaining of severe lower back pain. He has history of chronic lower back pain and knee problems. He takes [facility] on an as-needed basis outpatient. He states that he got to bed previous night, and the pain was so severe that he could not rollover. He had some associated lower extremity weakness. Denies any bowel or bladder incontinence. He fell out of bed, the neighbors came over, and attempted to help him get up off the floor. They ended up having to call EMS. Denies hitting his head. Of note, the patient has had a congested cough for several days with copious green sputum production. Denies any associated fevers, chest pain, hemoptysis. He denies any shortness of breath, however, he is on 4 L/min nasal cannula currently. SpO2 is 94%. An ABG was drawn on arrival, which showed a PaO2 of 53, pCO2 of 50, and pH of 7.42. Likely a component of chronic hypercapnic respiratory. He did have an elevated D-dimer, and follow-up chest CTA does not show any evidence of pulmonary embolism. It does show bibasilar patchy groundglass and consolidative opacities concerning for bibasilar pneumonia. There is mediastinal and hilar lymphadenopathy, likely related to above. Scattered calcified pleural plaquing. There is also a few scattered pulmonary nodules measuring up to 6.5 mm. Patient denies history of previously diagnosed chronic pulmonary diseases. He denies any history of known asbestos exposure. He continues to smoke his tobacco pipe, but quit smoking cigarettes over 30 years ago. 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 CBC: WBC count 12.8, hemoglobin 13.8, hematocrit 41.5, plate lets 195. BMP was unremarkable. No electrolyte abnormalities. Troponin elevated at 0.05. NT proBNP 1530. EKG shows normal sinus rhythm with RBBB. Nontoxic appearance. Vitals are stable. Review of Systems REVIEW OF SYSTEMS: CONSTITUTIONAL: Denies any recent significant weight loss or weight gain. EYES: Denies change in vision. EARS, NOSE, MOUTH, THROAT: Denies headaches, denies sore throat. CARDIOVASCULAR: Denies chest pain, palpitations or syncopal episodes. RESPIRATORY: See HPI GASTROINTESTINAL: Denies change in appetite, abdominal pain, nausea and vomiting, or diarrhea GENITOURINARY: Denies hematuria, denies infections. MUSKULOSKELETAL: See HPI INTEGUMENTARY: Denies rash, denies eczema. NEUROLOGICAL: Denies recent memory loss, no recent seizure activity. PSYCHIATRIC: Denies anxiety, denies depression. HEMATOLOGIC/LYMPHATIC: Denies anemia, denies enlarged lymph node Past Medical History Past Medical History: Hypertension, Osteoarthritis (OA) Additional Past Medical History / Comment(s): Arthritis r/t pain in back and legs. Recent falls. Pt on PO Lasix, denies hx of CHF. History of Any Multi-Drug Resistant Organisms: None Reported Past Surgical History: Orthopedic Surgery Additional Past Surgical History / Comment(s): steriod injections in back Past Anesthesia/Blood Transfusion Reactions: No Reported Reaction Past Psychological History: No Psychological Hx Reported Additional Psychological History / Comment(s): . Smoking Status: Current some day smoker Past Alcohol Use History: Occasional Additional Past Alcohol Use History / Comment(s): Occasionally smokes tobacco from a pipe. Pt states "maybe once or twice a week" Past Drug Use History: Unable to Obtain - Past Family History Mother Family Medical History: No Reported History Medications and Allergies Home Medications Medication Instructions Recorded Confirmed Type Furosemide [Lasix] 40 mg PO DAILY 02/01/20 12/13/23 History HYDROcodone/APAP 7.5-325MG [[place] 1 tab PO Q8H PRN 12/13/23 12/13/23 History 7.5-325] Ketoconazole 2% Cream [Nizoral 2%] 1 applic TOPICAL DAILY PRN 12/13/23 12/13/23 History traZODone HCL 150 mg PO HS PRN 12/13/23 12/13/23 History Allergies Allergy/AdvReac Type Severity Reaction Status Date / Time No Known Allergies Allergy Verified 12/13/23 10:04 Physical Exam Vitals: Vital Signs Temp Pulse Pulse Resp BP BP Pulse Ox 12/14/23 00:00 98.1 F 97 18 112/57 94 L 12/13/23 21:00 98.4 F 98 20 130/75 92 L 12/13/23 20:48 96 16 123/76 93 L 12/13/23 19:15 98.6 F 95 22 129/72 90 L 12/13/23 14:14 96 18 124/61 93 L 12/13/23 12:51 84 20 124/65 94 L 12/13/23 10:13 91 16 119/61 95 12/13/23 08:55 92 L 12/13/23 08:52 100 129/76 87 L 12/13/23 08:40 98.6 F 102 H 20 115/55 86 L Intake and Output 12/13/23 12/13/23 12/14/23 14:59 22:59 06:59 Other: Voiding Method Urinal Urinal Weight 97.522 kg 97.522 kg GENERAL EXAM: Alert, 88-year-old white male, comfortable in no apparent distress. HEAD: Normocephalic and atraumatic EYES: Normal reaction of pupils, equal size. NOSE: Clear with pink turbinates. THROAT: No erythema or exudates. NECK: No masses, no JVD. CHEST: No chest wall deformity. LUNGS: Equal air entry with diminished bibasilar lung sounds. No crackles, wheeze, rhonchi. There is a congested cough. On 4 L/min nasal cannula. No conversational dyspnea or accessory muscle use while at rest. CVS: S1 and S2 normal with no audible murmur, regular rhythm. No extra heart sounds ABDOMEN: No hepatosplenomegaly, active bowel sounds, no guarding or rigidity. SPINE: No scoliosis or deformity. No point tenderness. Negative straight leg raise test bilateral. SKIN: No rashes CENTRAL NERVOUS SYSTEM: No focal deficits, tone is normal in all 4 extremities. Bilateral lower extremity strength graded 4/5. Patellar DTRs 1+ bilaterally. EXTREMITIES: There is no peripheral edema, clubbing, or cyanosis. Peripheral pulses are intact. Results - Laboratory Findings CBC and BMP: 12/14/23 07:30 12/14/23 07:30 ABG ABG pH 7.42 (7.35-7.45) 12/13/23 10:04 ABG pCO2 50 mmHg (35-45) H 12/13/23 10:04 ABG pO2 53 mmHg (83-108) L* 12/13/23 10:04 ABG O2 Saturation 88.9 % (94-97) L 12/13/23 10:04 PT/INR, D-dimer PT 12.4 sec (10.0-12.5) 12/13/23 10:26 INR 1.2 (<1.2) H 12/13/23 10:26 D-Dimer 8.09 mg/L FEU (<0.60) H 12/13/23 10:26 Abnormal lab findings: Abnormal Labs 12/13/23 12/13/23 12/13/23 10:04 10:26 10:26 WBC 12.8 H Neutrophils # 11.1 H Lymphocytes # 0.8 L INR 1.2 H D-Dimer 8.09 H ABG pCO2 50 H ABG pO2 53 L* ABG HCO3 32 H ABG Total CO2 33 H ABG O2 Saturation 88.9 L Carbon Dioxide Glucose Total Bilirubin Troponin I Total Protein 12/13/23 12/13/23 10:26 10:26 WBC Neutrophils # Lymphocytes # INR D-Dimer ABG pCO2 ABG pO2 ABG HCO3 ABG Total CO2 ABG O2 Saturation Carbon Dioxide 33 H Glucose 110 H Total Bilirubin 3.2 H Troponin I 0.050 H* Total Protein 6.0 L - Diagnostic Findings Chest x-ray: image reviewed CT scan - chest: image reviewed Assessment and Plan Assessment: B Acute hypoxic respiratory failure and the patient is currently on 2 L of oxygen by nasal cannula, possible bibasilar pulmonary infiltrates/pneumonia. Bibasilar community-acquired pneumonia, chest CTA demonstrates bibasilar patchy groundglass and consolidative opacities concerning for bibasilar pneumonia. There is also mediastinal and hilar lymphadenopathy, possibly reactive. Acute hypoxemic and hypercapnic respiratory failure, secondary to above chronic obstructive pulmonary disease Current ongoing tobacco smoker, quit smoking cigarettes over 30 years ago, continues to smoke tobacco with pipe Incidental finding of pleural plaquing on chest CTA Few scattered pulmonary nodules measuring up to 6.5 mm, may be followed up o utpatient Acute on chronic lumbar back pain, lumbar x-ray demonstrated diffuse osteopenia with multilevel arthropathy and degenerative disc disease. No compression deformities. Hard of hearing Plan: Patient's medications, labs, imaging reviewed Continue supplemental oxygen to maintain oxygen saturation 92% or greater Continue empiric antibiotics in the form of azithromycin and Rocephin Obtain sputum culture if possible. Blood cultures pending. Continue as DuoNebs [id number] No signs of CO2 narcosis. Compensated and likely component of chronic hypercapnic respiratory failure Smoking cessation counseling performed. We will continue to follow I have personally seen and examined the patient, performed the documentation and the assessment and plan as written. Number of minutes spent on the visit:20 On 12/14/2023, the patient was seen in joint evaluation along with the nurse misti li. The patient was hospitalized yesterday for generalized weakness and suspected bibasilar pulmonary infiltrates/pneumonia. CT of the chest was done and showed bibasilar patchy groundglass and consolidation changes and the patient is currently on a combination of Rocephin and Zithromax. No reported aspiration. No hemodynamic instability. He is an ex-smoker and does have an underlying COPD. He suffers from chronic back pain. Clinically stable. Hemodynamically stable. White cell count is nonelevated. Procalcitonin level is at 0.18. Renal function is stable. Continue antibiotics. Will continue to follow. Time with Patient: Greater than 30
[2023-12-14] MEDS: FUROSEMIDE 40 MG TAB PO SCH (08:06)
[2023-12-14] MEDS: AZITHROMYCIN 500 MG TAB PO SCH (08:06)
[2023-12-14] MEDS: ENOXAPARIN 40 MG/0.4 ML SYRINGE SQ SCH (08:07)
[2023-12-14 08:08] LABS: Basophils # (A) 0.1 k/uL (0-0.2); Basophils % (A) 1 %; Eosinophils # (A) 0.1 k/uL (0-0.7); Eosinophils % (A) 1 %; HCT 39.7 % (39.0-53.0); HGB 13.5 gm/dL (13.0-17.5); Lymphocytes % (A) 9 %; MCH 30.8 pg (25.0-35.0); MCHC 34.1 g/dL (31.0-37.0); MCV 90.3 fL (80.0-100.0); Mean Platelet Volume 8.3; Monocytes # (A) 0.7 k/uL (0-1.0); Monocytes % (A) 6 %; Neutrophils # (A) 8.5 k/uL (1.3-7.7); Neutrophils % (A) 82 %; Platelet Count 202 k/uL (150-450); RBC 4.39 m/uL (4.30-5.90); WBC 10.4 k/uL (3.8-10.6)
[2023-12-14] MEDS: IPRATROPIUM-ALBUTEROL 3 ML NEB INHALATION SCH (08:18)
[2023-12-14 08:19] LABS: ALT 16 U/L (4-49); AST 35 U/L (17-59); African American GFR (CKD) >90 (>60 ml/min/1.73 sqM); Albumin 3.5 g/dL (3.5-5.0); Alkaline Phosphatase 94 U/L (38-126); Anion Gap 4 mmol/L; Blood Urea Nitrogen 18 mg/dL (9-20); Calcium 8.8 mg/dL (8.4-10.2); Carbon Dioxide 31 mmol/L (22-30); Chloride 101 mmol/L (98-107); Glucose 126 mg/dL (74-99); Non-African American GFR(CKD) 88 (>60 ml/min/1.73 sqM); Potassium 3.9 mmol/L (3.5-5.1); Sodium 136 mmol/L (137-145); Total Bilirubin 2.4 mg/dL (0.2-1.3)
--- NOTE | 2023-12-14 09:33 | XR ---
EXAMINATION TYPE: XR chest 1V portable DATE OF EXAM: 12/14/2023 COMPARISON: 12/13/2023 HISTORY: Pain TECHNIQUE: Single frontal view of the chest is obtained. FINDINGS: There is prominence of the upper mediastinum likely representing ectatic vasculature or th yroid. Chronic deformity of the left clavicle with bilateral shoulder arthropathy and diffuse osteope nidia. Patchy interstitial changes involving both lung bases. Heart size mildly prominent. Atherosclerotic change aorta. Linear density right upper lobe compatible scarring or atelectasis. Cannot exclude a pulmonary nodule.. Heart size normal and no overt failure. Osseous structures demonstrate hypertrophic and degenerative changes of the spine. Right hilar promi nence. Correlate for adenopathy. IMPRESSION: 1. Stable patchy bilateral areas of interstitial and lower lobe infiltrates. Correlate for underlying pneumonia. 2. Persistent density in the in the right upper lobe may represent pleural calcified plaques. Subcent imeter pulmonary nodules also suspected laterally. 3. Hilar and right paratracheal prominence can be related to adenopathy.
--- NOTE | 2023-12-14 11:02 | CA ---
Transthoracic Echo Report Name: Felipe Charlton Age: 88 Gender: M : 1935 Exam Date: 12/14/2023 09:07 Exam Location: [facility] Ht (in): 73 Wt (lb): 215 Ordering Physician: Marichuy Varner Attending/Referring Phys: [id number], [place] [employer]ist Alexandra Barnett RDCS Procedure CPT: Indications: LV function Cardiac Hx: Technical Quality: Fair Contrast 1: Total Dose (mL): Contrast 2: Total Dose (mL): MEASUREMENTS (Male / Female) Normal Values 2D ECHO LV Diastolic Diameter PLAX 4.6 cm 4.2 - 5.9 / 3.9 - 5.3 cm LV Systolic Diameter PLAX 3.6 cm IVS Diastolic Thickness 1.2 cm 0.6 - 1.0 / 0.6 - 0.9 cm LVPW Diastolic Thickness 1.2 cm 0.6 - 1.0 / 0.6 - 0.9 cm LV Relative Wall Thickness 0.5 RV Internal Dim ED PLAX 3.4 cm LVOT Diameter 3.3 cm LA Systolic Diameter LX 4.2 cm 3.0 - 4.0 / 2.7 - 3.8 cm LV Diastolic Volume MOD BP 109.1 cm??? 67 - 155 / 56 - 104 cm??? LV Systolic Volume MOD BP 53.3 cm??? 22 - 58 / 19 - 49 cm??? LV Ejection Fraction MOD BP 51.1 % >= 55 % LV Cardiac Index MOD BP 2149.5 cm???/min???m??? LV Diastolic Volume MOD 4C 105.8 cm??? LV Systolic Volume MOD 4C 65.0 cm??? LV Ejection Fraction MOD 4C 38.6 % LV Cardiac Index MOD 4C 1572.0 cm???/min???m??? LV Diastolic Length 4C 7.9 cm LV Systolic Length 4C 7.0 cm LV Diastolic Volume MOD 2C 101.3 cm??? LV Systolic Volume MOD 2C 44.0 cm??? LV Ejection Fraction MOD 2C 56.6 % LV Cardiac Index MOD 2C 2207.4 cm???/min???m??? LV Diastolic Length 2C 8.9 cm LV Systolic Length 2C 6.9 cm M-MODE Aortic Root Diameter MM 3.8 cm DOPPLER AV Peak Velocity 204.5 cm/s AV Peak Gradient 16.7 mmHg AV Mean Velocity 136.0 cm/s AV Mean Gradient 8.8 mmHg AV Velocity Time Integral 40.8 cm Mitral E Point Velocity 69.1 cm/s Mitral A Point Velocity 114.6 cm/s Mitral E to A Ratio 0.6 MV Deceleration Time 190.8 ms MV E' Velocity 5.4 cm/s Mitral E to MV E' Ratio 12.7 TR Peak Velocity 273.1 cm/s TR Peak Gradient 29.8 mmHg Right Ventricular Systolic Press 39.9 mmHg FINDINGS Left Ventricle Left ventricular ejection fraction is estimated at 50-55 %. Left ventricular cavity size normal. Mildly increased septal wall thickness. Mildly decreased left ventricular ejection fraction. Dystal septum hypiknesis Right Ventricle Mild right ventricular dilatation. Mild pulmonary hypertension. Right Atrium Normal right atrial size. No right atrial thrombus or mass seen. Left Atrium Mildly increased left atrial diameter. No left atrial thrombus or mass present. Mitral Valve Structurally normal mitral valve. No mitral stenosis, regurgitation or prolapse. Aortic Valve Aortic valve not well visualized. Mild aortic stenosis with a peak gradient of 17 mmHg and a mean gradient of 9 mmHg. Tricuspid Valve Structurally normal tricuspid valve. Mild tricuspid regurgitation. Pulmonic Valve Structurally normal pulmonic valve. No pulmonic regurgitation. Pericardium No pericardial mass. Aorta Mild aortic dilatation at the level of the sinuses of valsalva 38 mm CONCLUSIONS Mildly reduced LV systolic function ejection fraction 50% Mild RV enlargement Mild aortic stenosis IVCD noted Previewed by: Dr. Yfn Trejo MD (Electronically Signed) Final Date: 14 December 2023 11:01
--- NOTE | 2023-12-14 11:23 | P.CRDCN ---
History of Present Illness History of present illness: HISTORY OF PRESENT ILLNESS: This is a 88-year-old male with a past medical history significant for former nicotine dependence and osteoarthritis. 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 We have been asked to see the patient in consultation for abnormal troponins. Patient examined at the bedside. Patient states he presented to the hospital after he fell out of bed. Patient states this was a mechanical fall and there was no evidence of syncope. He states he has been having knee and back pain since falling. Patient was also found to have pneumonia and was started on antibiotics. Patient currently denies any chest pain or pressure. He denies any shortness of breath. He denies having a cough or fever at home. Vital signs are stable. DIAGNOSTICS: - EKG reveals sinus mechanism with right bundle branch block. - Chest xray stable patchy bilateral areas of interstitial and lower lobe infiltrates. Persistent density in the right upper lobe may represent pleural calcified plaques. Subcentimeter pulmonary nodules also suspected laterally. Hilar and right peritracheal prominence can be related to adenopathy.. - Laboratory data: WBC 12.8. Hemoglobin 13.8. Platelet count 195. D-dimer 8.09. Troponin 136. Potassium 3.9. BUN 18. Creatinine 0.63. Troponin 0.050. proBNP 1530. - Current home cardiac medications include Lasix 40 mg daily - Echocardiogram obtained this admission reveals ejection fraction 50 to 55%, mild RV enlargement, mild aortic stenosis REVIEW OF SYSTEMS: At the time of my exam: CONSTITUTIONAL: Denies fever or chills. HEENT: Denies blurred vision, vision changes, or eye pain. Denies hemoptysis CARDIOVASCULAR: Denies chest pain. Denies orthopnea. Denies PND. Denies palpitations RESPIRATORY: Denies shortness of breath. GASTROINTESTINAL: Denies abdominal pain. Denies nausea or vomiting. HEMATOLOGIC: Denies bleeding disorders. GENITOURINARY: Denies any blood in urine. SKIN: Denies pruitis. Denies rash. PHYSICAL EXAM: VITAL SIGNS: Reviewed. GENERAL: Well-developed in no acute distress. HEENT: Head is normocephalic. Pupils are equal, round. Sclerae anicteric. Mucous membranes of the mouth are moist. Neck supple. No JVD or thyromegaly LUNGS: Respirations even and unlabored. Lungs essentially clear to auscultation bilaterally. HEART: Regular rate and rhythm. S1 and S2 heard. ABDOMEN: Soft. Nondistended. Nontender. EXTREMITIES: Normal range of motion. No clubbing or cyanosis. Peripheral pulses intact. No lower extremity edema NEUROLOGIC: Awake and alert. Oriented x 3. ASSESSMENT: Status post mechanical fall Bibasilar pneumonia Abnormal troponin, type II VT secondary to oxygen supply and demand mismatch secondary to above, no evidence of acute coronary syndrome Former nicotine dependence PLAN: An acute coronary but has been ruled out 2D echo obtained and reviewed No further inpatient recommendations from a cardiac standpoint We will sign off. Please reconsult if needed. Nurse practitioner note has been reviewed by physician. Signing provider agrees with the documented findings, assessment, and plan of care documented by ROLL PANNER as a scribe. Past Medical History Past Medical History: Hypertension, Osteoarthritis (OA) Additional Past Medical History / Comment(s): Arthritis r/t pain in back and legs. Recent falls. Pt on PO Lasix, denies hx of CHF. History of Any Multi-Drug Resistant Organisms: None Reported Past Surgical History: Orthopedic Surgery Additional Past Surgical History / Comment(s): steriod injections in back Past Anesthesia/Blood Transfusion Reactions: No Reported Reaction Past Psychological History: No Psychological Hx Reported Additional Psychological History / Comment(s): . Smoking Status: Current some day smoker Past Alcohol Use History: Occasional Additional Past Alcohol Use History / Comment(s): Occasionally smokes tobacco from a pipe. Pt states "maybe once or twice a week" Past Drug Use History: Unable to Obtain - Past Family History Mother Family Medical History: No Reported History Medications and Allergies Home Medications Medication Instructions Recorded Confirmed Type Furosemide [Lasix] 40 mg PO DAILY 02/01/20 12/13/23 History HYDROcodone/APAP 7.5-325MG [[place] 1 tab PO Q8H PRN 12/13/23 12/13/23 History 7.5-325] Ketoconazole 2% Cream [Nizoral 2%] 1 applic TOPICAL DAILY PRN 12/13/23 12/13/23 History traZODone HCL 150 mg PO HS PRN 12/13/23 12/13/23 History Allergies Allergy/AdvReac Type Severity Reaction Status Date / Time No Known Allergies Allergy Verified 12/13/23 10:04 Physical Exam Vitals: Vital Signs Temp Pulse Pulse Resp BP BP Pulse Ox 12/14/23 04:00 98.7 F 101 H 20 121/50 92 L 12/14/23 00:00 98.1 F 97 18 112/57 94 L 12/13/23 21:00 98.4 F 98 20 130/75 92 L 12/13/23 20:48 96 16 123/76 93 L 12/13/23 19:15 98.6 F 95 22 129/72 90 L 12/13/23 14:14 96 18 124/61 93 L 12/13/23 12:51 84 20 124/65 94 L 12/13/23 10:13 91 16 119/61 95 12/13/23 08:55 92 L 12/13/23 08:52 100 129/76 87 L 12/13/23 08:40 98.6 F 102 H 20 115/55 86 L Intake and Output 12/13/23 12/14/23 12/14/23 22:59 06:59 14:59 Output Total 425 Balance -425 Output: Urine 425 Other: Voiding Method Urinal Urinal # Voids 1 Weight 97.522 kg Results 12/14/23 07:30 12/14/23 07:30 Cardiac Enzymes 12/13/23 12/13/23 Range/Units 10:26 10:26 AST 33 (17-59) U/L Troponin I 0.050 H* (0.000-0.034) ng/mL Coagulation 12/13/23 Range/Units 10:26 PT 12.4 (10.0-12.5) sec APTT 25.4 (22.0-30.0) sec CBC 12/13/23 12/14/23 Range/Units 10:26 07:30 WBC 12.8 H 10.4 (3.8-10.6) k/uL RBC 4.67 4.39 (4.30-5.90) m/uL Hgb 13.8 13.5 (13.0-17.5) gm/dL Hct 41.5 39.7 (39.0-53.0) % Plt Count 195 202 (150-450) k/uL Comprehensive Metabolic Panel 12/13/23 Range/Units 10:26 Sodium 137 (137-145) mmol/L Potassium 3.6 (3.5-5.1) mmol/L Chloride 102 (98-107) mmol/L Carbon Dioxide 33 H (22-30) mmol/L BUN 20 (9-20) mg/dL Creatinine 0.72 (0.66-1.25) mg/dL Glucose 110 H (74-99) mg/dL Calcium 8.8 (8.4-10.2) mg/dL AST 33 (17-59) U/L ALT 15 (4-49) U/L Alkaline Phosphatase 78 (38-126) U/L Total Protein 6.0 L (6.3-8.2) g/dL Albumin 3.5 (3.5-5.0) g/dL Current Medications Generic Name Dose Route Start Last Admin Trade Name Freq PRN Reason Stop Dose Admin Hydrocodone Bitart/Acetaminophen 1 each 12/13/23 14:34 12/13/23 21:08 Hydrocodone/Apap 7.5-325mg 1 Each Tab PO 1 each Q8H PRN Administration Pain Albuterol Sulfate 2.5 mg 12/14/23 03:58 Albuterol Nebulized 2.5 Mg/3 Ml INHALATION RT-QID PRN Shortness Of Breath Or Wheezing Albuterol/Ipratropium 3 ml 12/14/23 08:00 Ipratropium-Albuterol 3 Ml Neb INHALATION RT-Q6H SOWMYA Azithromycin 500 mg 12/14/23 09:00 12/14/23 08:06 Azithromycin 500 Mg Tab PO 12/15/23 09:01 500 mg DAILY SOWMYA Administration Protocol Enoxaparin Sodium 40 mg 12/14/23 09:00 12/14/23 08:07 Enoxaparin 40 Mg/0.4 Ml Syringe SQ 40 mg DAILY SOWMYA Administration Furosemide 40 mg 12/14/23 09:00 12/14/23 08:06 Furosemide 40 Mg Tab PO 40 mg DAILY SOWMYA Administration Ceftriaxone Sodium 2 gm/ 50 mls @ 100 mls/hr 12/14/23 09:00 12/14/23 08:06 Sodium Chloride IVPB 12/17/23 09:29 100 mls/hr Q24HR SOWMYA Administration Protocol Miscellaneous Information 1 each 12/13/23 13:02 Pneumonia Protocol Utilized 1 Each Misc PO ONCE PRN Per Protocol Trazodone HCl 150 mg 12/13/23 14:34 Trazodone Hcl 50 Mg Tab PO HS PRN Insomnia Intake and Output 12/13/23 12/14/23 12/14/23 22:59 06:59 14:59 Output Total 425 Balance -425 Output: Urine 425 Other: Voiding Method Urinal Urinal # Voids 1 Weight 97.522 kg 12/14/23 07:30 12/13/23 10:26
--- NOTE | 2023-12-14 11:35 | P.HPIM ---
History of Present Illness H&P Date: 12/13/23 Felipe Charlton, is an 88-year-old male who presented to [facility] emergency room with a chief complaint of low back pain, bilateral knee pain, and fall out of bed He was evaluated in the emergency room vital examination on presentation revealed a temperature of 98.6 pulse 102 respiration 20 blood pressure 115/55 pulse ox 86% on room air Laboratory data revealed a white blood count of 12.8 hemoglobin 13.8 platelet count 195 arterial blood gas revealed a pH of 7.42 pCO2 58 pO2 53 BUN 20 creatinine 0.72 troponin level 0.050 Testing in the emergency room revealed chest x-ray done in the emergency room revealed patchy interstitial and bibasilar atelectasis and a 1 cm right upper lobe pulmonary nodule, CT angiogram of the chest revealed no evidence of pulmonary embolism bibasilar patchy groundglass opacities concerning for pneumonia, mediastinal and hilar lymphadenopathy, and few scattered pulmonary nodules measuring up to 6.5 mm Patient was admitted to medical floor for further evaluation and treatment, pulmonary consultation requested Past medical history is significant for hypertension, osteoarthritis and current every day smoker Past Medical History Past Medical History: Hypertension, Osteoarthritis (OA) Additional Past Medical History / Comment(s): back pain, leg pain History of Any Multi-Drug Resistant Organisms: None Reported Past Surgical History: Orthopedic Surgery Additional Past Surgical History / Comment(s): steriod injections in back Past Anesthesia/Blood Transfusion Reactions: No Reported Reaction Past Psychological History: No Psychological Hx Reported Smoking Status: Former smoker Past Alcohol Use History: Occasional Past Drug Use History: Unable to Obtain - Past Family History Mother Family Medical History: No Reported History Medications and Allergies Home Medications Medication Instructions Recorded Confirmed Type Furosemide [Lasix] 40 mg PO DAILY 02/01/20 12/13/23 History HYDROcodone/APAP 7.5-325MG [[place] 1 tab PO Q8H PRN 12/13/23 12/13/23 History 7.5-325] Ketoconazole 2% Cream [Nizoral 2%] 1 applic TOPICAL DAILY PRN 12/13/23 12/13/23 History traZODone HCL 150 mg PO HS PRN 12/13/23 12/13/23 History Allergies Allergy/AdvReac Type Severity Reaction Status Date / Time No Known Allergies Allergy Verified 12/13/23 10:04 Physical Exam Vitals: Vital Signs Temp Pulse Resp BP Pulse Ox 12/13/23 14:14 96 18 124/61 93 L 12/13/23 12:51 84 20 124/65 94 L 12/13/23 10:13 91 16 119/61 95 12/13/23 08:55 92 L 12/13/23 08:52 100 129/76 87 L 12/13/23 08:40 98.6 F 102 H 20 115/55 86 L Intake and Output 12/12/23 12/13/23 12/13/23 22:59 06:59 14:59 Other: Weight 97.522 kg In general patient is alert and oriented x 3 in no distress HEENT head normocephalic and atraumatic Neck is supple no JVD no goiter no lymphadenopathy no carotid bruit Chest examination is clear to auscultation no crackles no wheezing Cardiac exam reveals regular heart sounds S1 and S2 no gallops no murmurs Abdomen is soft nontender no organomegaly with normal bowel sounds Extremity exam reveals no edema no cyanosis or clubbing Neurological examination reveals no gross focal deficits Results CBC & Chem 7: 12/14/23 07:30 12/14/23 07:30 Labs: Abnormal Lab Results - Last 24 Hours (Table) 12/13/23 12/13/23 12/13/23 Range/Units 10:04 10:26 10:26 WBC 12.8 H (3.8-10.6) k/uL Neutrophils # 11.1 H (1.3-7.7) k/uL Lymphocytes # 0.8 L (1.0-4.8) k/uL INR 1.2 H (<1.2) D-Dimer 8.09 H (<0.60) mg/L FEU ABG pCO2 50 H (35-45) mmHg ABG pO2 53 L* (83-108) mmHg ABG HCO3 32 H (21-25) mmol/L ABG Total CO2 33 H (19-24) mmol/L ABG O2 Saturation 88.9 L (94-97) % Carbon Dioxide (22-30) mmol/L Glucose (74-99) mg/dL Total Bilirubin (0.2-1.3) mg/dL Troponin I (0.000-0.034) ng/mL Total Protein (6.3-8.2) g/dL 12/13/23 12/13/23 Range/Units 10:26 10:26 WBC (3.8-10.6) k/uL Neutrophils # (1.3-7.7) k/uL Lymphocytes # (1.0-4.8) k/uL INR (<1.2) D-Dimer (<0.60) mg/L FEU ABG pCO2 (35-45) mmHg ABG pO2 (83-108) mmHg ABG HCO3 (21-25) mmol/L ABG Total CO2 (19-24) mmol/L ABG O2 Saturation (94-97) % Carbon Dioxide 33 H (22-30) mmol/L Glucose 110 H (74-99) mg/dL Total Bilirubin 3.2 H (0.2-1.3) mg/dL Troponin I 0.050 H* (0.000-0.034) ng/mL Total Protein 6.0 L (6.3-8.2) g/dL Assessment and Plan Plan: Bibasilar infiltrates suggestive of pneumonia Acute hypoxic respiratory failure requiring oxygen therapy Elevated D-dimer, no evidence of pulmonary embolism on CT angiogram of the chest Elevated troponin level, will follow cardiology consultation requested Pulmonary nodule on chest x-ray needs follow-up Underlying history of hypertension Underlying history of hyperlipidemia Underlying history of diabetes mellitus At this time patient was seen and examined Home medications reviewed and reordered He was started on IV antibiotics ceftriaxone and Zithromax Pulmonary consultation requested, cardiology consultation requested For DVT prophylaxis subcu Lovenox Will follow closely
--- NOTE | 2023-12-14 11:40 | P.PN ---
Subjective Progress Note Date: 12/14/23 Felipe Charlton, is an 88-year-old male who presented to [facility] emergency room with a chief complaint of low back pain, bilateral knee pain, and fall out of bed He was evaluated in the emergency room vital examination on presentation revealed a temperature of 98.6 pulse 102 respiration 20 blood pressure 115/55 pulse ox 86% on room air Laboratory data revealed a white blood count of 12.8 hemoglobin 13.8 platelet count 195 arterial blood gas revealed a pH of 7.42 pCO2 58 pO2 53 BUN 20 creatinine 0.72 troponin level 0.050 Testing in the emergency room revealed chest x-ray done in the emergency room revealed patchy interstitial and bibasilar atelectasis and a 1 cm right upper lobe pulmonary nodule, CT angiogram of the chest revealed no evidence of pulmonary embolism bibasilar patchy groundglass opacities concerning for pneumonia, mediastinal and hilar lymphadenopathy, and few scattered pulmonary nodules measuring up to 6.5 mm Patient was admitted to medical floor for further evaluation and treatment, pulmonary consultation requested Past medical history is significant for hypertension, osteoarthritis and current every day smoker On 12/14/2023 patient is alert and oriented 3 currently resting in bed.Patient remains on IV antibiotics of Zithromax and Rocephin. Pulmonary andCardiology services following. 2-D echo ordered.Current vital signs temp 98.7, heart rate 96 mesentery rate 20, blood pressure 121/50 with pulse ox 92% on 4 L. Patient denies chest pain or shortness breath. Objective - Vital Signs Vital signs: Vital Signs Temp 98.7 F 12/14/23 04:00 Pulse 96 12/14/23 08:26 Resp 20 12/14/23 04:00 BP 121/50 12/14/23 04:00 Pulse Ox 92 L 12/14/23 08:18 FiO2 Intake & Output 12/13/23 12/14/23 12/14/23 18:59 06:59 18:59 Output Total 425 Balance -425 Weight 97.522 kg 97.522 kg Output: Urine 425 Other: Voiding Method Urinal # Voids 1 - Labs CBC & Chem 7: 12/14/23 07:30 12/14/23 07:30 Labs: Abnormal Lab Results - Last 24 Hours (Table) 12/14/23 12/14/23 12/14/23 Range/Units 07:30 07:30 07:30 Neutrophils # 8.5 H (1.3-7.7) k/uL Sodium 136 L (137-145) mmol/L Carbon Dioxide 31 H (22-30) mmol/L Creatinine 0.63 L (0.66-1.25) mg/dL Glucose 126 H (74-99) mg/dL Total Bilirubin 2.4 H (0.2-1.3) mg/dL Total Protein 6.0 L (6.3-8.2) g/dL Procalcitonin 0.18 H (0.02-0.09) ng/mL Assessment and Plan Plan: Bibasilar infiltrates suggestive of pneumonia Acute hypoxic respiratory failure requiring oxygen therapy Elevated D-dimer, no evidence of pulmonary embolism on CT angiogram of the chest Elevated troponin level, will follow cardiology consultation requested Pulmonary nodule on chest x-ray needs follow-up Underlying history of hypertension Underlying history of hyperlipidemia Underlying history of diabetes mellitus At this time patient was seen and examined Home medications reviewed and reordered He was started on IV antibiotics ceftriaxone and Zithromax Pulmonary consultation requested, cardiology consultation requested For DVT prophylaxis subcu Lovenox Will follow closely
[2023-12-15 11:10] LABS: Basophils # (A) 0.1 k/uL (0-0.2); Basophils % (A) 1 %; Eosinophils # (A) 0.3 k/uL (0-0.7); Eosinophils % (A) 3 %; Lymphocytes # (A) 1.1 k/uL (1.0-4.8); Lymphocytes % (A) 12 %; MCH 29.5 pg (25.0-35.0); MCHC 31.9 g/dL (31.0-37.0); MCV 92.2 fL (80.0-100.0); Mean Platelet Volume 9.5; Monocytes # (A) 0.8 k/uL (0-1.0); Monocytes % (A) 9 %; Neutrophils # (A) 6.5 k/uL (1.3-7.7); Neutrophils % (A) 73 %; Platelet Count 215 k/uL (150-450); RBC 4.77 m/uL (4.30-5.90); RDW 13.7 % (11.5-15.5); WBC 8.9 k/uL (3.8-10.6)
[2023-12-15 11:39] LABS: ALT 22 U/L (4-49); AST 39 U/L (17-59); African American GFR (CKD) >90 (>60 ml/min/1.73 sqM); Albumin 3.8 g/dL (3.5-5.0); Alkaline Phosphatase 98 U/L (38-126); Anion Gap 8 mmol/L; Blood Urea Nitrogen 16 mg/dL (9-20); Calcium 8.8 mg/dL (8.4-10.2); Carbon Dioxide 29 mmol/L (22-30); Chloride 97 mmol/L (98-107); Glucose 103 mg/dL (74-99); Non-African American GFR(CKD) 85 (>60 ml/min/1.73 sqM); Potassium 3.7 mmol/L (3.5-5.1); Sodium 134 mmol/L (137-145); Total Bilirubin 1.6 mg/dL (0.2-1.3); Total Protein 6.3 g/dL (6.3-8.2)
--- NOTE | 2023-12-15 12:26 | P.PN ---
Subjective Progress Note Date: 12/15/23 Patient is a 88-year-old white male with past medical history significant for pneumonia, hypertension, chronic lower back pain, and current ongoing tobacco dependence. Patient presented emergency room yesterday morning complaining of severe lower back pain. He has history of chronic lower back pain and knee problems. He takes [facility] on an as-needed basis outpatient. He states that he got to bed previous night, and the pain was so severe that he could not rollover. He had some associated lower extremity weakness. Denies any bowel or bladder incontinence. He fell out of bed, the neighbors came over, and attempted to help him get up off the floor. They ended up having to call EMS. Denies hitting his head. Of note, the patient has had a congested cough for several days with copious green sputum production. Denies any associated fevers, chest pain, hemoptysis. He denies any shortness of breath, however, he is on 4 L/min nasal cannula currently. SpO2 is 94%. An ABG was drawn on arr ival, which showed a PaO2 of 53, pCO2 of 50, and pH of 7.42. Likely a component of chronic hypercapnic respiratory. He did have an elevated D-dimer, and follow-up chest CTA does not show any evidence of pulmonary embolism. It does show bibasilar patchy groundglass and consolidative opacities concerning for bibasilar pneumonia. There is mediastinal and hilar lymphadenopathy, likely related to above. Scattered calcified pleural plaquing. There is also a few scattered pulmonary nodules measuring up to 6.5 mm. Patient denies history of previously diagnosed chronic pulmonary diseases. He denies any history of known asbestos exposure. He continues to smoke his tobacco pipe, but quit smoking cigarettes over 30 years ago. 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 CBC: WBC count 12.8, hemoglobin 13.8, hematocrit 41.5, platelets 195. BMP was unremarkable. No electrolyte abnormalities. Troponin elevated at 0.05. NT proBNP 1530. EKG shows normal sinus rhythm with RBBB. Nontoxic appearance. Vitals are stable. On 12/15/2023, the patient is being seen for a follow-up. Doing well. No specific complaints. Remains on oxygen 2 L/min nasal cannula. No chest pain. No cough or sputum production. No significant shortness of breath. Procalcitonin level is at 0.18. The white cell count is at 8.9 with a hemoglobin of 14, BUN 16 with a creatinine of 0.7 and a sodium level is 134 and a potassium level of 3.7. The general urine antigen has been negative. The patient remains on IV Rocephin. The patient remains on bronchodilators. The patient remains on Lovenox 40 mg subcu for DVT prophylaxis. Awake and alert and communicating. He remains quite hard of hearing. Objective - Vital Signs Vital signs: Vital Signs Temp 97.6 F 12/15/23 04:00 Pulse 99 12/15/23 04:00 Resp 18 12/15/23 04:00 BP 140/70 12/15/23 04:00 Pulse Ox 92 L 12/15/23 04:00 FiO2 Intake & Output 12/14/23 12/15/23 12/15/23 18:59 06:59 18:59 Intake Total 900 Output Total 575 Balance 900 -575 Intake: Oral 900 Output: Urine 575 Other: Voiding Method Urinal Urinal # Voids 2 1 - Exam GENERAL EXAM: Alert, 88-year-old white male, comfortable in no apparent distress. HEAD: Normocephalic and atraumatic EYES: Normal reaction of pupils, equal size. NOSE: Clear with pink turbinates. THROAT: No erythema or exudates. NECK: No masses, no JVD. CHEST: No chest wall deformity. LUNGS: Equal air entry with diminished bibasilar lung sounds. No crackles, wheeze, rhonchi. There is a congested cough. On 4 L/min nasal cannula. No conversational dyspnea or accessory muscle use while at rest. CVS: S1 and S2 normal with no audible murmur, regular rhythm. No extra heart sounds ABDOMEN: No hepatosplenomegaly, active bowel sounds, no guarding or rigidity. SPINE: No scoliosis or deformity. No point tenderness. Negative straight leg raise test bilateral. SKIN: No rashes CENTRAL NERVOUS SYSTEM: No focal deficits, tone is normal in all 4 extremities. Bilateral lower extremity strength graded 4/5. Patellar DTRs 1+ bilaterally. EXTREMITIES: There is no peripheral edema, clubbing, or cyanosis. Peripheral pulses are intact. - Labs CBC & Chem 7: 12/15/23 09:48 06/13/24 09:48 Labs: Abnormal Lab Results - Last 24 Hours (Table) 12/14/23 Range/Units 07:30 Procalcitonin 0.18 H (0.02-0.09) ng/mL Microbiology - Last 24 Hours (Table) 12/13/23 13:35 Blood Culture - Preliminary Blood 12/13/23 13:35 Blood Culture - Preliminary Blood Assessment and Plan Assessment: Acute hypoxic respiratory failure and the patient is currently on 2 L of oxygen by nasal cannula, possible bibasilar pulmonary infiltrates/pneumonia. Clinically stable, no hypotension, no hemodynamic instability. Bibasilar community-acquired pneumonia, chest CTA demonstrates bibasilar patchy groundglass and consolidative opacities concerning for bibasilar pneumonia. Th ere is also mediastinal and hilar lymphadenopathy, possibly reactive. Acute hypoxemic and hypercapnic respiratory failure, secondary to above, remains on oxygen 2 L/min nasal cannula chronic obstructive pulmonary disease Current ongoing tobacco smoker, quit smoking cigarettes over 30 years ago, c ontinues to smoke tobacco with pipe Incidental finding of pleural plaquing on chest CTA Few scattered pulmonary nodules measuring up to 6.5 mm, may be followed up outpatient Acute on chronic lumbar back pain, lumbar x-ray demonstrated diffuse osteopenia with multilevel arthropathy and degenerative disc disease. No compression deformities. Hard of hearing Plan: Continue supplemental oxygen to maintain oxygen saturation 92% or greater, titrate oxygen flow to maintain saturation above 90% Continue empiric antibiotics in the form of azithromycin and Rocephin Obtain sputum culture if possible. Blood cultures pending. Procalcitonin level is mildly elevated Continue as [employer] [id number] Smoking cessation counseling performed. We will continue to follow
--- NOTE | 2023-12-15 13:14 | P.PN ---
Subjective Progress Note Date: 12/15/23 Felipe Charlton, is an 88-year-old male who presented to [facility] emergency room with a chief complaint of low back pain, bilateral knee pain, and fall out of bed He was evaluated in the emergency room vital examination on presentation revealed a temperature of 98.6 pulse 102 respiration 20 blood pressure 115/55 pulse ox 86% on room air Laboratory data revealed a white blood count of 12.8 hemoglobin 13.8 platelet count 195 arterial blood gas revealed a pH of 7.42 pCO2 58 pO2 53 BUN 20 creatinine 0.72 troponin level 0.050 Testing in the emergency room revealed chest x-ray done in the emergency room revealed patchy interstitial and bibasilar atelectasis and a 1 cm right upper lobe pulmonary nodule, CT angiogram of the chest revealed no evidence of pulmonary embolism bibasilar patchy groundglass opacities concerning for pneumonia, mediastinal and hilar lymphadenopathy, and few scattered pulmonary nodules measuring up to 6.5 mm Patient was admitted to medical floor for further evaluation and treatment, pulmonary consultation requested Past medical history is significant for hypertension, osteoarthritis and current every day smoker On 12/14/2023 patient is alert and oriented 3 currently resting in bed.Patient remains on IV antibiotics of Zithromax and Rocephin. Pulmonary and Cardiology services following. 2-D echo ordered.Current vital signs temp 98.7, heart rate 96 mesentery rate 20, blood pressure 121/50 with pulse ox 92% on 4 L. Patient denies chest pain or shortness breath. On 12/15/2023 patient was seen and examined on the telemetry floor, he is alert and oriented x 3 in no apparent distress, he reports improvement in his cough and shortness of breath, he is complaining of generalized weakness otherwise he denies any complaints, there is no fever or chills no headache or dizziness no chest pain, no nausea or vomiting no abdominal pain no diarrhea no blood in the stools, no burning with urination no frequency or urgency and no hematuria Objective - Vital Signs Vital signs: Vital Signs Temp 97.6 F 12/15/23 04:00 Pulse 99 12/15/23 04:00 Resp 18 12/15/23 04:00 BP 140/70 12/15/23 04:00 Pulse Ox 92 L 12/15/23 04:00 FiO2 Intake & Output 12/14/23 12/15/23 12/15/23 18:59 06:59 18:59 Intake Total 900 Output Total 575 Balance 900 -575 Intake: Oral 900 Output: Urine 575 Other: Voiding Method Urinal Urinal # Voids 2 1 - Exam In general patient is alert and oriented x 3 in no distress HEENT head normocephalic and atraumatic Neck is supple no JVD no goiter no lymphadenopathy no carotid bruit Chest examination is clear to auscultation no crackles no wheezing Cardiac exam reveals regular heart sounds S1 and S2 no gallops no murmurs Abdomen is soft nontender no organomegaly with normal bowel sounds Extremity exam reveals no edema no cyanosis or clubbing Neurological examination reveals no gross focal deficits - Labs CBC & Chem 7: 12/15/23 09:48 12/15/23 09:48 Labs: Abnormal Lab Results - Last 24 Hours (Table) 12/15/23 Range/Units 09:48 Sodium 134 L (137-145) mmol/L Chloride 97 L (98-107) mmol/L Glucose 103 H (74-99) mg/dL Total Bilirubin 1.6 H (0.2-1.3) mg/dL Microbiology - Last 24 Hours (Table) 12/13/23 13:35 Blood Culture - Preliminary Blood 12/13/23 13:35 Blood Culture - Preliminary Blood Assessment and Plan Plan: Bibasilar infiltrates suggestive of pneumonia Acute hypoxic respiratory failure requiring oxygen therapy Elevated D-dimer, no evidence of pulmonary embolism on CT angiogram of the chest Elevated troponin level, will follow cardiology consultation requested Pulmonary nodule on chest x-ray needs follow-up Underlying history of hypertension Underlying history of hyperlipidemia Underlying history of diabetes mellitus At this time patient was seen and examined Home medications reviewed and reordered He was started on IV antibiotics ceftriaxone and Zithromax Pulmonary consultation requested, cardiology consultation requested For DVT prophylaxis subcu Lovenox Will follow closely
[2023-12-16 03:36] VITALS: TEMP 97.9
[2023-12-16 09:29] VITALS: RESP 20
--- NOTE | 2023-12-16 11:18 | P.PN ---
Subjective Progress Note Date: 12/16/23 Felipe Charlton, is an 88-year-old male who presented to [facility] emergency room with a chief complaint of low back pain, bilateral knee pain, and fall out of bed He was evaluated in the emergency room vital examination on presentation revealed a temperature of 98.6 pulse 102 respiration 20 blood pressure 115/55 pulse ox 86% on room air Laboratory data revealed a white blood count of 12.8 hemoglobin 13.8 platelet count 195 arterial blood gas revealed a pH of 7.42 pCO2 58 pO2 53 BUN 20 creatinine 0.72 troponin level 0.050 Testing in the emergency room revealed chest x-ray done in the emergency room revealed patchy interstitial and bibasilar atelectasis and a 1 cm right upper lobe pulmonary nodule, CT angiogram of the chest revealed no evidence of pulmonary embolism bibasilar patchy groundglass opacities concerning for pneumonia, mediastinal and hilar lymphadenopathy, and few scattered pulmonary nodules measuring up to 6.5 mm Patient was admitted to medical floor for further evaluation and treatment, pulmonary consultation requested Past medical history is significant for hypertension, osteoarthritis and current every day smoker On 12/14/2023 patient is alert and oriented 3 currently resting in bed.Patient remains on IV antibiotics of Zithromax and Rocephin. Pulmonary and Cardiology services following. 2-D echo ordered.Current vital signs temp 98.7, heart rate 96 mesentery rate 20, blood pressure 121/50 with pulse ox 92% on 4 L. Patient denies chest pain or shortness breath. On 12/15/2023 patient was seen and examined on the telemetry floor, he is alert and oriented x 3 in no apparent distress, he reports improvement in his cough and shortness of breath, he is complaining of generalized weakness otherwise he denies any complaints, there is no fever or chills no headache or dizziness no chest pain, no nausea or vomiting no abdominal pain no diarrhea no blood in the stools, no burning with urination no frequency or urgency and no hematuria On 12/15/2009 for patient's alert and oriented 3. Patient reports improvement with cough and shortness of breath. Awaiting pulmonary clearance prior to discharge. Patient denies chest pain. Patient denies nausea vomiting or diarrhea. Patient denies any urinary burning or frequency Objective - Vital Signs Vital signs: Vital Signs Temp 97.9 F 12/16/23 08:00 Pulse 92 12/16/23 08:00 Resp 20 12/16/23 08:00 BP 140/70 12/16/23 08:00 Pulse Ox 94 L 12/16/23 10:46 FiO2 Intake & Output 12/15/23 12/16/23 12/16/23 18:59 06:59 18:59 Intake Total 360 360 Balance 360 360 Intake: Oral 360 360 Other: Voiding Method Urinal Urinal # Voids 2 - Exam In general patient is alert and oriented x 3 in no distress HEENT head normocephalic and atraumatic Neck is supple no JVD no goiter no lymphadenopathy no carotid bruit Chest examination is clear to auscultation no crackles no wheezing Cardiac exam reveals regular heart sounds S1 and S2 no gallops no murmurs Abdomen is soft nontender no organomegaly with normal bowel sounds Extremity exam reveals no edema no cyanosis or clubbing Neurological examination reveals no gross focal deficits - Labs CBC & Chem 7: 12/15/23 09:48 12/15/23 09:48 Labs: Abnormal Lab Results - Last 24 Hours (Table) 12/15/23 Range/Units 09:48 Sodium 134 L (137-145) mmol/L Chloride 97 L (98-107) mmol/L Glucose 103 H (74-99) mg/dL Total Bilirubin 1.6 H (0.2-1.3) mg/dL Microbiology - Last 24 Hours (Table) 12/13/23 13:35 Blood Culture - Preliminary Blood 12/13/23 13:35 Blood Culture - Preliminary Blood Assessment and Plan Plan: Bibasilar infiltrates suggestive of pneumonia Acute hypoxic respiratory failure requiring oxygen therapy Elevated D-dimer, no evidence of pulmonary embolism on CT angiogram of the chest Elevated troponin level, will follow cardiology consultation requested Pulmonary nodule on chest x-ray needs follow-up Underlying history of hypertension Underlying history of hyperlipidemia Underlying history of diabetes mellitus At this time patient was seen and examined Home medications reviewed and reordered He was started on IV antibiotics ceftriaxone and Zithromax Pulmonary consultation requested, cardiology consultation requested For DVT prophylaxis subcu Lovenox Will follow closely
[2023-12-16 11:50] VITALS: BP 142/56; PULSE 99
--- NOTE | 2023-12-16 13:40 | P.DS ---
Providers Date of admission: 12/13/23 13:03 Expected date of discharge: 12/16/23 Attending physician: Charlie Galvin Consults: 12/13/23 13:02 Consult Physician Routine Consulting Provider: Daljit Brand Consult Reason/Comments: hypoxia Do you want consulting provider notified?: Yes Primary care physician: Charlie Galvin [facility] Course: Diagnosis on discharge: Bibasilar infiltrates suggestive of pneumonia Acute hypoxic respiratory failure requiring oxygen therapy Elevated D-dimer, no evidence of pulmonary embolism on CT angiogram of the chest Elevated troponin level, will follow cardiology consultation requested Pulmonary nodule on chest x-ray needs follow-up Underlying history of hypertension Underlying history of hyperlipidemia Underlying history of diabetes mellitus Hospital course: Felipe Charlton, is an 88-year-old male who presented to [facility] emergency room with a chief complaint of low back pain, bilateral knee pain, and fall out of bed He was evaluated in the emergency room vital examination on presentation revealed a temperature of 98.6 pulse 102 respiration 20 blood pressure 115/55 pulse ox 86% on room air Laboratory data revealed a white blood count of 12.8 hemoglobin 13.8 platelet count 195 arterial blood gas revealed a pH of 7.42 pCO2 58 pO2 53 BUN 20 creati nine 0.72 troponin level 0.050 Testing in the emergency room revealed chest x-ray done in the emergency room revealed patchy interstitial and bibasilar atelectasis and a 1 cm right upper lobe pulmonary nodule, CT angiogram of the chest revealed no evidence of pulmonary embolism bibasilar patchy groundglass opacities concerning for pneumonia, mediastinal and hilar lymphadenopathy, and few scattered pulmonary nodules measuring up to 6.5 mm Patient was admitted to medical floor for further evaluation and treatment, pulmonary consultation requested Past medical history is significant for hypertension, osteoarthritis and current every day smoker On 12/14/2023 patient is alert and oriented 3 currently resting in bed.Patient remains on IV antibiotics of Zithromax and Rocephin. Pulmonary and Cardiology services following. 2-D echo ordered.Current vital signs temp 98.7, heart rate 96 mesentery rate 20, blood pressure 121/50 with pulse ox 92% on 4 L. Patient denies chest pain or shortness breath. On 12/15/2023 patient was seen and examined on the telemetry floor, he is alert and oriented x 3 in no apparent distress, he reports improvement in his cough and shortness of breath, he is complaining of generalized weakness otherwise he denies any complaints, there is no fever or chills no headache or dizziness no chest pain, no nausea or vomiting no abdominal pain no diarrhea no blood in the stools, no burning with urination no frequency or urgency and no hematuria On 12/15/2009 for patient's alert and oriented 3. Patient reports improvement with cough and shortness of breath. Awaiting pulmonary clearance prior to discharge. Patient denies chest pain. Patient denies nausea vomiting or diarrhea. Patient denies any urinary burning or frequency. Patient was evaluated by pulmonary and was cleared for discharge. He was given a prescription for Ceftin 500 mg twice daily for 7 days He was also given a prescription for DuoNeb updraft treatment, and a prescription for a nebulizer Pulmonary started him on home oxygen therapy Follow-up in the office within 1 week. Patient Condition at Discharge: Serious Plan - Discharge Summary Discharge Rx Participant: No New Discharge Prescriptions: New cefUROXime axetiL [Cefuroxime] 500 mg PO BID 7 Days #14 tab Ipratropium-Albuterol Nebulize [Duoneb 0.5 mg-3 mg/3 ml Soln] 3 ml INHALATION RT-Q6H 30 Days #120 each Continue Furosemide [Lasix] 40 mg PO DAILY traZODone HCL 150 mg PO HS PRN PRN Reason: Insomnia HYDROcodone/APAP 7.5-325MG [[place] 7.5-325] 1 tab PO Q8H PRN PRN Reason: Pain Ketoconazole 2% Cream [Nizoral 2%] 1 applic TOPICAL DAILY PRN PRN Reason: Rash Discharge Medication List Furosemide [Lasix] 40 mg PO DAILY 02/01/20 [History] HYDROcodone/APAP 7.5-325MG [[place] 7.5-325] 1 tab PO Q8H PRN 12/13/23 [History] Ketoconazole 2% Cream [Nizoral 2%] 1 applic TOPICAL DAILY PRN 12/13/23 [History] traZODone HCL 150 mg PO HS PRN 12/13/23 [History] Ipratropium-Albuterol Nebulize [Duoneb 0.5 mg-3 mg/3 ml Soln] 3 ml INHALATION RT-Q6H 30 Days #120 each 12/16/23 [Rx] cefUROXime axetiL [Cefuroxime] 500 mg PO BID 7 Days #14 tab 12/16/23 [Rx] Follow up Appointment(s)/Referral(s): Charlie Galvin MD [Primary Care Provider] - 1-2 days
--- NOTE | 2023-12-16 16:20 | P.PN ---
Subjective Progress Note Date: 12/16/23 Patient is a 88-year-old white male with past medical history significant for pneumonia, hypertension, chronic lower back pain, and current ongoing tobacco dependence. Patient presented emergency room yesterday morning complaining of severe lower back pain. He has history of chronic lower back pain and knee problems. He takes [facility] on an as-needed basis outpatient. He states that he got to bed previous night, and the pain was so severe that he could not rollover. He had some associated lower extremity weakness. Denies any bowel or bladder incontinence. He fell out of bed, the neighbors came over, and attempted to help him get up off the floor. They ended up having to call EMS. Denies hitting his head. Of note, the patient has had a congested cough for several days with copious green sputum production. Denies any associated fevers, chest pain, hemoptysis. He denies any shortness of breath, however, he is on 4 L/min nasal cannula currently. SpO2 is 94%. An ABG was drawn on arr ival, which showed a PaO2 of 53, pCO2 of 50, and pH of 7.42. Likely a component of chronic hypercapnic respiratory. He did have an elevated D-dimer, and follow-up chest CTA does not show any evidence of pulmonary embolism. It does show bibasilar patchy groundglass and consolidative opacities concerning for bibasilar pneumonia. There is mediastinal and hilar lymphadenopathy, likely related to above. Scattered calcified pleural plaquing. There is also a few scattered pulmonary nodules measuring up to 6.5 mm. Patient denies history of previously diagnosed chronic pulmonary diseases. He denies any history of known asbestos exposure. He continues to smoke his tobacco pipe, but quit smoking cigarettes over 30 years ago. 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 CBC: WBC count 12.8, hemoglobin 13.8, hematocrit 41.5, platelets 195. BMP was unremarkable. No electrolyte abnormalities. Troponin elevated at 0.05. NT proBNP 1530. EKG shows normal sinus rhythm with RBBB. Nontoxic appearance. Vitals are stable. On 12/15/2023, the patient is being seen for a follow-up. Doing well. No specific complaints. Remains on oxygen 2 L/min nasal cannula. No chest pain. No cough or sputum production. No significant shortness of breath. Procalcitonin level is at 0.18. The white cell count is at 8.9 with a hemoglobin of 14, BUN 16 with a creatinine of 0.7 and a sodium level is 134 and a potassium level of 3.7. The general urine antigen has been negative. The patient remains on IV Rocephin. The patient remains on bronchodilators. The patient remains on Lovenox 40 mg subcu for DVT prophylaxis. Awake and alert and communicating. He remains quite hard of hearing. On today's evaluation of 12/16/2023, the patient is doing essentially stable. No interval worsening his respiratory status. Oxygenation is also stable and the patient currently on 2 L of oxygen by nasal cannula. Pulse ox on room air is in order 84% and patient qualifies for home O2. The patient will be going home on oral antibiotics. The white cell count of 8.9 with a hemoglobin 14 and the BUN is 16 with a creatinine of 0.7 and a sodium levels at 134. Afebrile. Hemodynamically stable. Family is at the bedside and the patient is going to go home on a course of cefuroxime. Objective - Vital Signs Vital signs: Vital Signs Temp 97.9 F 12/16/23 08:00 Pulse 92 12/16/23 08:00 Resp 20 12/16/23 08:00 BP 140/70 12/16/23 08:00 Pulse Ox 94 L 12/16/23 10:46 FiO2 Intake & Output 12/15/23 12/16/23 12/16/23 18:59 06:59 18:59 Intake Total 360 360 Balance 360 360 Intake: Oral 360 360 Other: Voiding Method Urinal Urinal # Voids 2 - Exam GENERAL EXAM: Alert, 88-year-old white male, comfortable in no apparent dis tress. HEAD: Normocephalic and atraumatic EYES: Normal reaction of pupils, equal size. NOSE: Clear with pink turbinates. THROAT: No erythema or exudates. NECK: No masses, no JVD. CHEST: No chest wall deformity. LUNGS: Equal air entry with diminished bibasilar lung sounds. No crackles, wheeze, rhonchi. There is a congested cough. On 4 L/min nasal cannula. No conversational dyspnea or accessory muscle use while at rest. CVS: S1 and S2 normal with no audible murmur, regular rhythm. No extra heart sounds ABDOMEN: No hepatosplenomegaly, active bowel sounds, no guarding or rigidity. SPINE: No scoliosis or deformity. No point tenderness. Negative straight leg raise test bilateral. SKIN: No rashes CENTRAL NERVOUS SYSTEM: No focal deficits, tone is normal in all 4 extremities. Bilateral lower extremity strength graded 4/5. Patellar DTRs 1+ bilaterally. EXTREMITIES: There is no peripheral edema, clubbing, or cyanosis. Peripheral pulses are intact. - Labs CBC & Chem 7: 12/15/23 09:48 12/15/23 09:48 Labs: Abnormal Lab Results - Last 24 Hours (Table) 12/15/23 Range/Units 09:48 Sodium 134 L (137-145) mmol/L Chloride 97 L (98-107) mmol/L Glucose 103 H (74-99) mg/dL Total Bilirubin 1.6 H (0.2-1.3) mg/dL Microbiology - Last 24 Hours (Table) 12/13/23 13:35 Blood Culture - Preliminary Blood 12/13/23 13:35 Blood Culture - Preliminary Blood Assessment and Plan Assessment: Acute hypoxic respiratory failure and the patient is currently on 2 L of oxygen by nasal cannula, possible bibasilar pulmonary infiltrates/pneumonia. Clinically stable, no hypotension, no hemodynamic instability. Bibasilar community-acquired pneumonia, chest CTA demonstrates bibasilar patchy groundglass and consolidative opacities concerning for bibasilar pneumonia. There is also mediastinal and hilar lymphadenopathy, possibly reactive. Acute hypoxemic and hypercapnic respiratory failure, secondary to above, remains on oxygen 2 L/min nasal cannula chronic obstructive pulmonary disease Current ongoing tobacco smoker, quit smoking cigarettes over 30 years ago, continues to smoke tobacco with pipe Incidental finding of pleural plaquing on chest CTA Few scattered pulmonary nodules measuring up to 6.5 mm, may be followed up outpatient Acute on chronic lumbar back pain, lumbar x-ray demonstrated diffuse osteopenia with multilevel arthropathy and degenerative disc disease. No compression deformities. Hard of hearing Plan: Clinically improved and the patient will qualify for home O2. Will discharge patient home on a course of cefuroxime. Continue supplemental oxygen to maintain oxygen saturation 92% or greater, titrate oxygen flow to maintain saturation above 90% Continue as DuoNebryce [id number] Smoking cessation counseling performed. We will continue to follow on outpatient basis. Follow-up chest x-ray needs to be done on outpatient basis. Cleared for discharge from pulm standpoint.
== END 2023-12-16 14:14 | disposition home or self-care (01) | DRG 193 ==
LOC: EC 08:38 → 4SSUR 13:03 → 3SCARD 17:56
PROVIDERS: ADMIT Internal Medicine; ATTEND Internal Medicine
DX: J18.9 Pneumonia, unspecified organism (principal); I21.A1 Myocardial infarction type 2; J96.01 Acute respiratory failure with hypoxia; J96.22 Acute and chronic respiratory failure with hypercapnia; J94.8 Other specified pleural conditions; J44.0 Chronic obstructive pulmonary disease with (acute) lower respiratory infection; J98.11 Atelectasis; E11.9 Type 2 diabetes mellitus without complications; I11.9 Hypertensive heart disease without heart failure; Z99.81 Dependence on supplemental oxygen; I35.0 Nonrheumatic aortic (valve) stenosis; R91.1 Solitary pulmonary nodule; F17.290 Nicotine dependence, other tobacco product, uncomplicated; G89.29 Other chronic pain; M85.88 Other specified disorders of bone density and structure, other site; M51.36 Other intervertebral disc degeneration, lumbar region; M47.816 Spondylosis without myelopathy or radiculopathy, lumbar region; H91.90 Unspecified hearing loss, unspecified ear; W06.XXXA Fall from bed, initial encounter; Z91.81 History of falling; Z71.6 Tobacco abuse counseling; I45.10 Unspecified right bundle-branch block; E78.5 Hyperlipidemia, unspecified; M19.09 Primary osteoarthritis, other specified site; R59.0 Localized enlarged lymph nodes; R29.6 Repeated falls; Y92.003 Bedroom of unspecified non-institutional (private) residence as the place of occurrence of the external cause; Z79.899 Other long term (current) drug therapy
CPT/HCPCS: 36415; 36600; 71045; 71046; 71275; 72100; 80053; 82805; 83605; 83735; 83880; 84145; 84484; 85025; 85379; 85610; 85730; 87040; 87449; 93005; 93306; 94640; 94760; 96361; 96365; 96367; 96372; 99291; 99406

== ENCOUNTER 2023-12-26 14:05 | Emergency (ER) | payer MEDICARE ==
[2023-12-26 14:24] VITALS: RESP 18
--- NOTE | 2023-12-26 15:04 | ED ---
Fall HPI - General Chief Complaint: Fall Stated Complaint: fall Time Seen by Provider: 12/26/23 14:20 Source: patient, family, RN notes reviewed Mode of arrival: ambulatory - History of Present Illness Initial Comments: This is an 88-year-old male presents emergency department accompanied by his and son for chief complaint of a fall. Patient states that Tuesday evening he was in the kitchen when he felt his knees gave out falling onto the right side of his body. Denies presyncopal symptoms such as dizziness, lightheadedness, palpitations, chest pressure/pain before the time of the fall. Patient denies hitting his head or loss of consciousness at the time of the fall. Currently patient is complaining of right-sided shoulder, anterior chest wall pain, and right arm pain. Patient states that he has pain with range of motion of the right arm. He is denying worsening dyspnea, headaches, dizziness, lightheadedness. - Related Data Home Medications Medication Instructions Recorded Confirmed Furosemide [Lasix] 40 mg PO DAILY 02/01/20 12/13/23 HYDROcodone/APAP 7.5-325MG [[place] 1 tab PO Q8H PRN 12/13/23 12/13/23 7.5-325] Ketoconazole 2% Cream [Nizoral 2%] 1 applic TOPICAL DAILY PRN 12/13/23 12/13/23 traZODone HCL 150 mg PO HS PRN 12/13/23 12/13/23 Previous Rx's Medication Instructions Recorded Ipratropium-Albuterol Nebulize 3 ml INHALATION RT-Q6H 30 Days 12/16/23 [Duoneb 0.5 mg-3 mg/3 ml Soln] #120 each cefUROXime axetiL [Cefuroxime] 500 mg PO BID 7 Days #14 tab 12/16/23 Allergies Allergy/AdvReac Type Severity Reaction Status Date / Time No Known Allergies Allergy Verified 12/26/23 14:24 Review of Systems ROS Statement: Those systems with pertinent positive or pertinent negative responses have been documented in the HPI. ROS Other: All systems not noted in ROS Statement are negative. Past Medical History Past Medical History: Hypertension, Osteoarthritis (OA) Additional Past Medical History / Comment(s): Arthritis r/t pain in back and legs. Recent falls. Pt on PO Lasix, denies hx of CHF. History of Any Multi-Drug Resistant Organisms: None Reported Past Surgical History: Orthopedic Surgery Additional Past Surgical History / Comment(s): steriod injections in back Past Anesthesia/Blood Transfusion Reactions: No Reported Reaction Past Psychological History: No Psychological Hx Reported Smoking Status: Current some day smoker Past Alcohol Use History: Occasional Past Drug Use History: Unable to Obtain - Past Family History Mother Family Medical History: No Reported History General Exam Limitations: no limitations General appearance: alert, in no apparent distress Head exam: Present: atraumatic, normocephalic, normal inspection Eye exam: Present: normal appearance, PERRL, EOMI. Absent: scleral icterus, conjunctival injection, periorbital swelling ENT exam: Present: normal exam, mucous membranes moist Neck exam: Present: normal inspection. Absent: tenderness, meningismus, lymphadenopathy Respiratory exam: Present: normal lung sounds bilaterally, chest wall tenderness (anterior). Absent: respiratory distress, wheezes, rales, rhonchi, stridor Cardiovascular Exam: Present: regular rate, normal rhythm, normal heart sounds. Absent: systolic murmur, diastolic murmur, rubs, gallop, clicks GI/Abdominal exam: Present: soft, normal bowel sounds. Absent: distended, tenderness, guarding, rebound, rigid Extremities exam: Present: normal inspection, full ROM, normal capillary refill. Absent: tenderness, pedal edema, joint swelling, calf tenderness Right General: Present: other (anterior chest wall ecchymosis and pain with palpation, no crepitus noted) Shoulder Exam: Present: normal inspection, full ROM (pain with ROM). Absent: tenderness Back exam: Present: normal inspection, tenderness (posterior right mid-back) Neurological exam: Present: alert, oriented X3, CN II-XII intact Psychiatric exam: Present: normal affect, normal mood Skin exam: Present: warm, dry, other (ecchymosis over the right anterior chest and right arm, pain with palpation) Course Vital Signs 12/26/23 12/26/23 14:21 16:55 Temperature 97.8 F 97.9 F Pulse Rate 98 67 Respiratory 18 18 Rate Blood Pressure 120/69 153/75 O2 Sat by Pulse 92 L 90 L Oximetry Medical Decision Making - Medical Decision Making Was pt. sent in by a medical professional or institution (, PA, JOURNEYMAN LEVEL ACOUSTIC ANALYST, urgent care, hospital, or [place] health care facility...) When possible be specific @ -No Did you speak to anyone other than the patient for history (EMS, parent, family, police, friend...)? What history was obtained from this source @ -spoke to the patient's at bedside who states that the patient was in the kitchen by himself last night when she heard a fall and went to the kitchen and saw him on the ground. Did you review nursing and triage notes (agree or disagree)? Why? @ -I reviewed and agree with nursing and triage notes Were old charts reviewed (outside hosp., previous admission, EMS record, old EKG, old radiological studies, urgent care reports/EKG's, [place] health care facility records)? Report findings @ -No old charts were reviewed Differential Diagnosis (chest pain, altered mental status, abdominal pain women, abdominal pain men, vaginal bleeding, weakness, fever, dyspnea, syncope, headache, dizziness, GI bleed, back pain, seizure, CVA, palpatations, mental health, musculoskeletal)? @ -ecchymosis, brusing, fall, shoulder dislocation, shoulder fracture, this list is not all inclusive. EKG interpreted by me (3pts min.). @ -none X-rays interpreted by me (1pt min.). @ -xr of the chest and right ribs reveal a minimally offset fracture of the lateral right fourth rib, xr right shoulder reveals suspicious for fracture along the superior border of the scapula, 9 mm calcification of the greater tuberosity. CT interpreted by me (1pt min.). @ -None done U/S interpreted by me (1pt. min.). @ -None done What testing was considered but not performed or refused? (CT, X-rays, U/S, labs)? Why? @ -Imaging of the head was considered but deferred at this time due to patient not hitting his head at the time of the fall and denies loss of consciousness or syncopal event. What meds were considered but not given or refused? Why? @ -Was offered pain medication but is declined at this time. Did you discuss the management of the patient with other professionals (professionals i.e. , PA, JOURNEYMAN LEVEL ACOUSTIC ANALYST, lab, RT, psych nurse, bilingual social worker, criminal lawyer, teacher, small business banking officer, upper caser)? Give summary @ -No Was smoking cessation discussed for >3mins.? @ -No Was critical care preformed (if so, how long)? @ -No Were there social determinants of health that impacted care today? How? (Homelessness, low income, unemployed, alcoholism, drug addiction, transportation, low edu. Level, literacy, decrease access to med. care, custodial, rehab)? @ -No Was there de-escalation of care discussed even if they declined (Discuss DNR or withdrawal of care, Hospice)? DNR status @ -No What co-morbidities impacted this encounter? (DM, HTN, Smoking, COPD, CAD, Cancer, CVA, ARF, Chemo, Hep., AIDS, mental health diagnosis, sleep apnea, morbid obesity)? @ -None Was patient admitted / discharged? Hospital course, mention meds given and route, prescriptions, significant lab abnormalities, going to OR and other pertinent info. @ -discharged. 88-year-old male with a fall. On examination patient is noted to have anterior chest wall ecchymosis and tenderness to palpation. Additionally he has ecchymosis noted over the right humerus. He has pain with event of the right shoulder. No crepitus noted on examination. He will be evaluated via radiologic studies. Concerning for fracture of the right superior border of the scapula. Patient was placed in a sling and is instructed to follow-up outpatient with chemistry specialist for further evaluation. Recommend the patient continue to use Tylenol at home as needed for symptomatic relief. All questions answered at bedside and strict return parameters discussed with the patient is verbalized understanding. Case discussed with Dr. Yeager Undiagnosed new problem with uncertain prognosis? @ -No Drug Therapy requiring intensive monitoring for toxicity (Heparin, Nitro, Insulin, Cardizem)? @ -No Were any procedures done? @ -No Diagnosis/symptom? @ -Fall, scapular fracture, anterior chest wall ecchymosis Acute, or Chronic, or Acute on Chronic? @ -acute Uncomplicated (without systemic symptoms) or Complicated (systemic symptoms)? @ -uncomplicated Side effects of treatment? @ -No Exacerbation, Progression, or Severe Exacerbation? @ -No Poses a threat to life or bodily function? How? (Chest pain, [place], MS, pneumonia, PE, COPD, DKA, ARF, appy, cholecystitis, CVA, Diverticulitis, Homicidal, Suicidal, threat to staff... and all critical care pts) @ -No Disposition Clinical Impression: Fall, Scapular fracture, Rib fracture Disposition: HOME SELF-CARE Condition: Good Instructions (If sedation given, give patient instructions): Fall Prevention for Older Adults (ED) Additional Instructions: Return to the emergency department if symptoms worsen. Take pain medication at home as needed. Follow-up with chemistry specialist for further evaluation. Is patient prescribed a controlled substance at d/c from ED?: No Referrals: Charlie Galvin MD [Primary Care Provider] - 1-2 days Khanh Smith DO [Doctor of Osteopathic Medicine] - 1-2 days Time of Disposition: 16:36
[2023-12-26] MEDS: HYDROcodone/APAP 10-325MG 1 EACH TAB PO ONE (15:57)
--- NOTE | 2023-12-26 16:01 | XR ---
EXAMINATION TYPE: XR right RIBS and PA chest, 5 views XR shoulder complete 3 views RT DATE OF EXAM: 12/26/2023 Comparison: None Clinical History: 88-year-old male fall, pain, bruising Findings: Chest and right RIBS: Mild cardiomegaly. Diffuse interstitial density. Patchy opacity mid and lower. No sizable pleural eff usion. No obvious pneumothorax though limited by large body habitus. Minimally offset fracture right lateral fourth rib suggested. Right shoulder: Moderate degenerative change at the AC joint. There is calcification at the greater tuberosity measur ing 9 mm. These moderate degenerative change at the glenohumeral joint. No displaced fracture seen. S tep-off along the superior border of the scapula. IMPRESSION: Chest and right RIBS: 1. Mild cardiomegaly and interstitial density, possible CHF with pulmonary vascular congestion. 2. Minimally offset fracture lateral right fourth rib. 3. Patchy opacity mid and lower lungs could represent areas of atelectasis or patchy infiltrate. Right shoulder: 4. Suspicious for a fracture along the superior border of the scapula. 5. Moderate AC and glenohumeral joint OA. 6. 9 mm focus of calcification at the greater tuberosity can be seen with calcific tendinitis of the rotator cuff.
--- NOTE | 2023-12-26 16:19 | XR ---
EXAMINATION TYPE: XR humerus 2 views RT, XR ribs RT w pa chest xray, 5 views DATE OF EXAM: 12/26/2023 COMPARISON: NONE HISTORY: 88-year-old male fall, pain, ecchymoses FINDINGS: Chest and right RIBS: Mild cardiomegaly. Diffuse interstitial density. Patchy opacity mid and lower. No sizable pleural eff usion. No obvious pneumothorax though limited by large body habitus. Minimally offset fracture right lateral fourth rib suggested. Right humerus: There is an underlying elbow joint effusion with elevation of the anterior fat pad of the elbow. [place] ncies projecting along both the proximal humeral shaft and distal humeral metadiaphysis appear to cor respond to overlying prominent skin folds. No displaced fracture is seen. Generalized muscle atrophy. IMPRESSION: Chest and right RIBS: 1. Mild cardiomegaly and interstitial density, possible CHF with pulmonary vascular congestion. 2. Minimally offset fracture lateral right fourth rib. 3. Patchy opacity mid and lower lungs could represent areas of atelectasis or patchy infiltrate. Right humerus: 4. Underlying elbow joint effusion. Unable to exclude an occult injury or internal derangement. [facility] [place] [facility] follow-[facility]. No displaced fracture seen. Right shoulder: 5. Reported separately.
[2023-12-26 16:57] VITALS: BP 153/75; PULSE 67; TEMP 97.9
== END 2023-12-26 16:57 | disposition home or self-care (01) ==
LOC: EC 14:05
DX: S22.31XA Fracture of one rib, right side, initial encounter for closed fracture (principal); F17.200 Nicotine dependence, unspecified, uncomplicated; W18.30XA Fall on same level, unspecified, initial encounter; Y92.000 Kitchen of unspecified non-institutional (private) residence as the place of occurrence of the external cause
CPT/HCPCS: 99283